=== PATIENT | female | born 1965 | race African-American/Black ===

== ENCOUNTER 2020-09-19 15:23 | Outpatient (REF) | payer MEDICAID, SELFPAY ==
--- NOTE | 2020-09-19 | MM_ITS ---
EXAMINATION: MM SCREENING DIGITAL BREAST TOMOSYNTHESIS, BILATERAL CLINICAL INFORMATION: Screening. Asymptomatic. The lifetime risk of breast cancer based on the Tyrer-Cuzick Model is 8%. COMPARISON: Mammography: 02/18/2018, 04/11/2016, 01/22/2013 TECHNIQUE: Digital breast tomosynthesis is performed in both the craniocaudal and mediolateral oblique views along with computer-aided detection (CAD). Synthesized 2D images are generated from the tomosynthesis. Additional bilateral CC views are provided. FINDINGS: There are scattered areas of fibroglandular density (ACR BI-RADS breast composition Category b). There are no significant masses, abnormal calcifications, or other abnormalities. Bilateral axillary nodes are stable. Skin contours are smooth. No significant changes. MM/MM tomosynthesis screening BI IMPRESSION: No mammographic evidence of malignancy. ASSESSMENT: BI-RADS 1: Negative RECOMMENDATION: Routine annual mammography screening. This patient's information was entered into a reminder system with a target due date for their next mammogram.
== END 2020-09-19 15:24 | disposition home or self-care (01) ==
LOC: HO.MAMMO 15:23
PROVIDERS: Visit Provider Emergency Medicine
DX: Z12.31 Encounter for screening mammogram for malignant neoplasm of breast (principal)
CPT/HCPCS: 77063; 77067

== ENCOUNTER 2020-12-01 08:18 | Day surgery (SDC) | payer MEDICAID, SELFPAY ==
[2020-11-25 14:10] VITALS: BMI 50.3
--- NOTE | 2020-11-30 08:26 | P.CONAN_ITS ---
Documented by User: Donna Garrison 11/30/20 08:26 HPI - Anesthesia Eval Consult details Narrative: 55yo F for Colonoscopy [facility] Past Medical History Medical History Diabetes mellitus Seizure Family History Family History Father No problems noted. Mother Family hx-asthma Hx of diabetes insipidus Hx of emphysema Surgical History Surgical History History of colonoscopy History of hysterectomy Hx of knee surgery Social History Social History Alcohol intake: never Smoking Status: Never smoker Advance Directives: No Advance Directives Information Provided: Yes Meds Allergies Allergy/AdvReac Type Severity Reaction Status Date / Time penicillin G [Penicillin G] Allergy Unknown RASH Verified 09/19/20 14:39 penicillin V Allergy Unknown rash Verified 09/19/20 14:39 Home Medications Medication Instructions Recorded Confirmed Type diphenhydramine HCl 25 mg capsule 25 mg PO BEDTIME 09/19/20 11/25/20 History Exam Exam Date and Time: November 30, 2020 0826 Height,Weight and Vital Signs: Height 5 ft 3 in Weight 128.82 kg Assessment and Plan Assessment Anesthesia Assessment: Chart Reviewed Documented by User: Zeina Brown 12/01/20 10:35 [facility] Past Medical History Medical History Diabetes mellitus Seizure Family History Family History Father No problems noted. Mother Family hx-asthma Hx of diabetes insipidus Hx of emphysema Surgical History Surgical History History of colonoscopy History of hysterectomy Hx of knee surgery Social History Social History Alcohol intake: never Smoking Status: Never smoker Advance Directives: No Advance Directives Information Provided: Yes Meds Allergies Allergy/AdvReac Type Severity Reaction Status Date / Time penicillin G [Penicillin G] Allergy Unknown RASH Verified 09/19/20 14:39 penicillin V Allergy Unknown rash Verified 09/19/20 14:39 Home Medications Medication Instructions Recorded Confirmed Type diphenhydramine HCl 25 mg capsule 25 mg PO BEDTIME 09/19/20 11/25/20 History Exam Height,Weight and Vital Signs: Vital Signs Temp Pulse Resp BP Pulse Ox 12/01/20 10:25 97.0 F 74 16 132/60 98 12/01/20 09:09 97.7 F 72 17 138/84 97 Airway Mallampati Class: II TM Dist: >3cm Neck ROM: Full Heart: RRR Lungs: CTAB Assessment and Plan Assessment Anesthesia Assessment: Anesthesia Plan Discussed and Chart Reviewed Final Anesthetic Review NPO: Yes ASA Class: III Final Preanesthetic Review: No Changes in Pt Med Stat, Meds/Allgs Chart Reviewed, Consent Obtained/Reviewed and Anes Risks/Benef Reviewed Patient Risk: Intermediate Procedure Risk: Low Assessment/Block/Sedation in SS: Assess/Block/Sedation-SS Anesthetic Plan Anesthetic Plan: MAC: Disposition: Standard PACU
[2020-12-01 09:09] VITALS: BP 138/84; PULSE 72; RESP 17; TEMP 36.5; O2SAT 97
[2020-12-01] MEDS: Lactated Ringers 1,000 ML 100 ML IVCONT (09:29)
--- NOTE | 2020-12-01 09:33 | P.HPSUR_ITS ---
Pre-Procedural Eval Section B Chief Complaint: screening Details of Present Illness: Colon cancer screening No clinical changes since pre procedure visit in September. Relevant Family History (Specify if Yes): No Relevant Social History: None Present Medications: see Short Stay Collaborative assessment Medical History: Significant History (Morbid obesity, diabetes-diet controlled, seizures) History of Previous Operations: Relevant previous surgery/procedure and date(s) (Hysterectomy for fibroids, colon negative done for episode rectal bleeding.) Allergies: Allergies Allergy/AdvReac Type Severity Reaction Status Date / Time penicillin G [Penicillin G] Allergy Unknown RASH Verified 09/19/20 14:39 penicillin V Allergy Unknown rash Verified 09/19/20 14:39 Review of Systems Sugical H&P ROS: Negative: Cardiovascular, Respiratory, Gastrointestinal and Mu sculoskeletal and Yes, Specify: Constitution (obesity) Exam Surgical H&P Exam: Normal: HEENT, Normal: Heart, Normal: Lungs and Normal: Extremities and Significant Findings: Abdomen (marked central obesity) Plan Diagnosis/Plan: Unchanged I have reviewed the history and physical and performed a pertinent physical examination on my patient. No changes have occurred unless specified.yes
--- NOTE | 2020-12-01 10:20 | PM.PROC ---
Brief Operative Note Date of procedure: 12/01/20 Pre-op diagnosis: Screening Post-op diagnosis: other (Low rectal polyp, 1+ Internal hemorrhoids) Procedure: Colonoscopy with cold snare polypectomy--resolution clipping x1 Anesthesia: MAC (Hilaria Morales crna) Surgeon: Sherry Arciniega Estimated blood loss (mL): 10 Pathology: other (rectal polyp) Condition: stable Disposition: PACU
[2020-12-01 10:25] VITALS: BP 132/60; PULSE 74; RESP 16; TEMP 36.1; O2SAT 98
[2020-12-01 10:40] VITALS: BP 139/86; PULSE 80; RESP 18; TEMP 36.1; O2SAT 98
--- NOTE | 2020-12-01 11:11 | HO.POSTANES ---
Post Anesthesia Evaluation Post Anesthesia Evaluation Vital Signs: Vital Signs Temp Pulse Resp BP Pulse Ox 12/01/20 10:40 97.0 F 80 18 139/86 98 12/01/20 10:25 97.0 F 74 16 132/60 98 12/01/20 09:09 97.7 F 72 17 138/84 97 Anesthesia: TIVA Mental Status: Awake Pain Control: Satisfactory Nausea/Vomiting: None Hydration: Adequate Anesthesia-Related Issues: No Anes. Related Issues
--- NOTE | 2020-12-01 11:18 | OP_ITS ---
SURGEON: Sherry Arciniega MD PREOPERATIVE DIAGNOSIS: Colon cancer screening. POSTOPERATIVE DIAGNOSIS: Rectal polyp. PROCEDURE PERFORMED: Colonoscopy with cold snare polypectomy and resolution and clipping. ESTIMATED BLOOD LOSS: Less than 10 mL. COMPLICATIONS: No complications. ANESTHESIA: Monitored. ANESTHESIOLOGIST: Ulisses Morales CRNA. ASSISTANTS: No assistant credit manager. SPECIMENS: Specimen removed; low rectal polyp, 3 cm in from anorectal verge. STATION BAGGAGE PORTER: Dr. Arciniega. CONDITION: Postprocedure, stable. IMPLANTS: Resolution clip at base of polyp (in the region where there were prominent internal hemorrhoidal vessels). FINDINGS: Digital rectal exam revealed slightly decreased sphincter tone. Video colonoscope was introduced without difficulty. It was navigated into the rectosigmoid and sigmoid. Prep was generally good throughout. Mildly redundant colon. Scope passed easily through descending, transverse, ascending colon down into the cecal cap. Appendiceal orifice was seen. Ileocecal valve was well seen. No mucosal abnormalities were appreciated. Slow withdrawal of the scope. Good rotational views (air insufflation was used). Scope continued to be withdrawn. In the rectum, there was a 3 to 4 mm sessile polyp that was removed with cold snare polypectomy technique, retrieved. Area of the base of the polyp, slight oozing, it was adjacent to prominent internal hemorrhoidal vessels in the rectal ampulla. Decision was made to deploy a resolution clip at the base. Anorectal verge was clear. There were 1+ internal hemorrhoids noted on withdrawing. CURRENT RECOMMENDATIONS: Repeat asymptomatic screening in this patient will be 5 years. Sherry Arciniega MD MEN/MODL / [id number] [facility]
== END 2020-12-01 11:18 ==
LOC: HO.SSS 08:19
PROVIDERS: Visit Provider Internal Medicine Gastroenterology
PROC: 0DJD8ZZ Inspection of Lower Intestinal Tract, Via Natural or Artificial Opening Endoscopic (ICD-10-PCS; CPT 45378; principal; 2020-12-01 09:30)
DX: Z12.11 Encounter for screening for malignant neoplasm of colon (principal); D12.8 Benign neoplasm of rectum; K64.8 Other hemorrhoids; E11.9 Type 2 diabetes mellitus without complications; R56.9 Unspecified convulsions; Z88.0 Allergy status to penicillin
CPT/HCPCS: 45385; 88305; J3010

== ENCOUNTER → 2020-12-22 13:55 | Outpatient (BNVA) | payer MEDICAID, SELFPAY | PROVIDERS: Visit Provider Nurse Practitioner Family ==

== ENCOUNTER 2021-02-16 11:30 | Outpatient (REF) | payer MEDICAID, SELFPAY ==
[2021-02-16 11:53] LABS: COVID-19 Test Negative (Negative)
== END 2021-02-16 11:31 | disposition home or self-care (01) ==
LOC: HO.LAB 11:30
PROVIDERS: Visit Provider Internal Medicine
DX: Z20.822 Contact with and (suspected) exposure to COVID-19 (principal)
CPT/HCPCS: 36415; 87635; C9803

== ENCOUNTER 2021-05-16 09:28 | Emergency (ER) | payer MEDICAID, SELFPAY ==
--- NOTE | ~2021-05-16 | XR_ITS ---
EXAMINATION: XR KNEE, RIGHT XR KNEE, LEFT CLINICAL INFORMATION: Fall, trauma, pain COMPARISON: Radiographs right knee 08/10/2015, radiographs left knee 08/08/2016. TECHNIQUE: The right knee is imaged in 4 views. The left knee is imaged in 5 views. There are a total of 9 views. FINDINGS: Right knee: There is no fracture or dislocation. There are degenerative changes, greatest medial knee joint compartment with joint narrowing and osteophytes from the medial femoral condyle and medial tibial plateau. There is no erosive change or chondrocalcinosis. Some trace thickening of the suprapatellar bursa is present without overt effusion. Hoffa's fat pad appears normal. There is spurring at the origin patellar tendon the. The deep infrapatellar recess is preserved. Left knee: There is no fracture or dislocation. Degenerative changes are present greatest medial knee joint compartment with joint narrowing and spurring from the medial femoral condyle and medial tibial plateau, slightly lesser severity than that on the right. There is no erosive change or chondrocalcinosis. No suprapatellar effusion. There is spurring at the quadriceps insertion patella and at the insertion patella tendon. The deep infrapatellar recess is preserved. XR/XR knee LT 4V IMPRESSION: 1. No fracture or dislocation. 2. Bilateral osteoarthritis, greatest medial compartment, slightly greater on right.
--- NOTE | ~2021-05-16 | XR_ITS ---
EXAMINATION: XR KNEE, RIGHT XR KNEE, LEFT CLINICAL INFORMATION: Fall, trauma, pain COMPARISON: Radiographs right knee 08/10/2015, radiographs left knee 08/08/2016. TECHNIQUE: The right knee is imaged in 4 views. The left knee is imaged in 5 views. There are a total of 9 views. FINDINGS: Right knee: There is no fracture or dislocation. There are degenerative changes, greatest medial knee joint compartment with joint narrowing and osteophytes from the medial femoral condyle and medial tibial plateau. There is no erosive change or chondrocalcinosis. Some trace thickening of the suprapatellar bursa is present without overt effusion. Hoffa's fat pad appears normal. There is spurring at the origin patellar tendon the. The deep infrapatellar recess is preserved. Left knee: There is no fracture or dislocation. Degenerative changes are present greatest medial knee joint compartment with joint narrowing and spurring from the medial femoral condyle and medial tibial plateau, slightly lesser severity than that on the right. There is no erosive change or chondrocalcinosis. No suprapatellar effusion. There is spurring at the quadriceps insertion patella and at the insertion patella tendon. The deep infrapatellar recess is preserved. XR/XR knee RT 4V IMPRESSION: 1. No fracture or dislocation. 2. Bilateral osteoarthritis, greatest medial compartment, slightly greater on right.
--- NOTE | ~2021-05-16 | XR_ITS ---
EXAMINATION: XR WRIST, LEFT CLINICAL INFORMATION: Fall, trauma, pain COMPARISON: None TECHNIQUE: The left wrist is imaged in 4 views. FINDINGS: There is no fracture, dislocation, or destructive process. The ulnar variance is neutral. There is no joint narrowing or erosive change or chondrocalcinosis. The pronator quadratus fat pad appears normal. XR/XR wrist LT min 3V IMPRESSION: Normal left wrist.
[2021-05-16 10:00] VITALS: BP 141/83; PULSE 72; RESP 16; TEMP 36.6; O2SAT 96; BMI 51.2
--- NOTE | 2021-05-16 11:02 | ED.BACK ---
HPI - Back Pain/Injury General Chief Complaint: Back Pain/Injury Stated Complaint: fall - lt side pain - multiple complaints Time Seen by Provider: 05/16/21 10:21 Source: patient Mode of arrival: ambulatory Limitations: no limitations History of Present Illness HPI Narrative: 55-year-old female with nonsignificant past medical history presents to the ED after mechanical fall with reports of bilateral knee, left wrist pain since yesterday. Patient states she was walking into [employer] when she slipped falling catching herself with her left breast and knees. Since has had pain. Denies head injury or trauma. States she feels sore in other areas of the body but nothing compared to these areas of discomfort. Denies chest pain or shortness of breath denies abdominal pain nausea or vomiting. States she has been able ambulate with difficulty has been using Tylenol at home for pain control. Related Data Home Medications Medication Instructions Recorded Confirmed diphenhydramine HCl 25 mg capsule 25 mg PO BEDTIME 09/19/20 11/25/20 Allergies Allergy/AdvReac Type Severity Reaction Status Date / Time penicillin G [Penicillin G] Allergy Unknown RASH Verified 09/19/20 14:39 penicillin V Allergy Unknown rash Verified 09/19/20 14:39 Review of Systems Review of Systems: Constitutional : No Weight loss, No Fever, No Chills, No Night Sweats, No Fatigue, No Malaise ENT/Mouth : No Hearing loss, No Ear Pain, No Nasal Congestion, No Sinus Pain, No Hoarseness, No sore throat, No Rhinorrhea, No Swallowing Difficulty Eyes: No Eye Pain, No Swelling, No Redness, No Foreign Body, No Discharge, No Vision Changes Cardiovascular : No Chest Pain, No SOB, No Dyspnea on Exertion, No Orthopnea, No Edema, No Palpitations Respiratory : No Cough, No Sputum, No Wheezing, No Smoke Exposure, No Dyspnea Gastrointestinal : No Nausea, No Vomiting, No Diarrhea, No Constipation, No abdominal Pain, No Hematochezia, No Melena Genitourinary : no irregular bleeding, No Dysuria, No Urinary Frequency, No Hematuria, No Urinary Incontinence, No Urgency, No Flank Pain, No Urinary Flow Changes, No Hesitancy Musculoskeletal : + joint pain, + Myalgias, No Joint Swelling Skin : No Skin Lesions, No rash Neuro : No Weakness, No Numbness, No Paresthesias, No Loss of Consciousness, No Dizziness, No Headache Psych : No Anxiety/Panic, No Depression, No SI/HI/AH/VH, No Social Issues, Heme/Lymph: No Bruising, No Bleeding,No Lymphadenopathy Endocrine : No Polyuria, No Polydipsia, No Temperature Intolerance [facility] Past Medical History Attestation statement: The following information was validated with the patient. Source: old records reviewed and obtained from family Medical History (Updated 05/16/21 @ 11:26 by TOBI Brown) Diabetes mellitus Seizure Tubular adenoma Surgical History (Updated 12/22/20 @ 13:57 by FLORESITA Orlando) History of colonoscopy History of hysterectomy Hx of knee surgery Family History Family History Father No problems noted. 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 Blood pressure normal. Heart rate normal. Respiration rate normal. Temperature normal. Oxygen saturation normal. Appearance: Alert. Oriented X3. No acute distress. Head: Normal external exam. Normocephalic. Atraumatic. No Fritz signs noted. No raccoon eyes noted Eyes: Conjunctiva and sclera normal. ENT: EAC normal. Moist mucous membranes. No drooling noted. No muffled voice noted. Neck: Normal inspection. Neck supple. FROM. No meningeal signs. CVS: Pulses normal throughout. Respiratory: No respiratory distress. Painless inspiration. No accessory muscle usage noted Abdomen: No visible injury noted. Abdomen soft, nd/nt Back: Full range of motion noted. No midline tenderness or acute step-offs Skin: Skin warm and dry. Normal skin color. Normal skin turgor. Extremities: No lower extremity edema. Extremities exhibit normal range of motion. Pain to palpation of bilateral anterior knees with mild ecchymosis, no crepitius or acute deformities. Full ROM noted. Mild pain to palpation of left wrist, no overlying, erythema, edema or ecchymosis. Neuro: Oriented X 3. No motor deficit. No sensory deficit. Course Reevaluation(s) Reevaluation #1: Patient's x-rays without evidence of acute fracture dislocation feel that discharge is safe will recommend continued ibuprofen and Tylenol home patient comfortable with this plan will discharge home this time. Discharge Plan Discharge Clinical Impression: Injury of wrist, left Qualifiers: Encounter type: initial encounter Qualified Code(s): S69.92XA - Unspecified injury of left wrist, hand and finger(s), initial encounter Bilateral knee pain Qualifiers: Chronicity: acute Qualified Code(s): M25.561 - Pain in right knee Patient Disposition: Home, Self-Care Instructions: Knee Sprain (ED), Wrist Sprain (ED) Additional Instructions: Your seen the emergency department today after a fall with left wrist and bilateral knee pain. X-rays were taken without evidence of fracture. Follow-up with your doctor if pain persists use Motrin and Tylenol home for pain control. Return to the emergency department his symptoms significantly worsen. Prescriptions: No Action diphenhydramine HCl [Benadryl] 25 mg capsule 25 mg PO BEDTIME RF: 0 Interventions: ED Discharge Assessment Last Done: 05/16/21 11:39 Discharge Date/Time: 05/16/21 11:40 Print Language: Yoruba
== END 2021-05-16 11:40 | disposition home or self-care (01) ==
PROVIDERS: Emergency Provider Student in an Organized Health Care Education/Training Program
DX: M25.562 Pain in left knee (principal); M25.561 Pain in right knee; S69.92XA Unspecified injury of left wrist, hand and finger(s), initial encounter; W01.0XXA Fall on same level from slipping, tripping and stumbling without subsequent striking against object, initial encounter; Y93.89 Activity, other specified; Y92.511 Restaurant or cafe as the place of occurrence of the external cause; Y99.8 Other external cause status
CPT/HCPCS: 73110; 73564; 99283

== ENCOUNTER 2021-05-26 22:32 | Emergency (ER) | payer MEDICAID, SELFPAY ==
--- NOTE | ~2021-05-26 | XR_ITS ---
EXAMINATION: XR CHEST CLINICAL INFORMATION: Cough COMPARISON: 04/17/2014 TECHNIQUE: 2 views of the chest were obtained. FINDINGS: No significant abnormality is noted involving the heart, lungs, mediastinum, bony thorax or soft tissues. XR/XR chest 2V IMPRESSION: Unremarkable examination.
[2021-05-26 23:16] VITALS: BP 147/89; PULSE 84; RESP 20; TEMP 36.6; O2SAT 98; BMI 51.2
[2021-05-27] VITALS: BP 142/76; PULSE 68; RESP 20; TEMP 36.7; O2SAT 97
--- NOTE | 2021-05-27 00:25 | ED_ITS ---
HPI - URI/Sore Throat General Chief Complaint: Upper Respiratory Symptoms Stated Complaint: Cough/Headache Time Seen by Provider: 05/26/21 23:51 Source: patient Mode of arrival: ambulatory Limitations: no limitations History of Present Illness HPI Narrative: Patient comes emergency room complaining of cough and nasal congestion for 4 days, denies shortness of breath, no chills, complaining of generalized body aches. Related Data Home Medications Medication Instructions Recorded Confirmed diphenhydramine HCl 25 mg capsule 25 mg PO BEDTIME 09/19/20 11/25/20 Previous Rx's Medication Instructions Recorded albuterol sulfate 2 puff INHALATION Q6H PRN #6.7 g 05/27/21 benzonatate [Tessalon Perles] 100 mg PO TID PRN #10 cap 05/27/21 Allergies Allergy/AdvReac Type Severity Reaction Status Date / Time penicillin G [Penicillin G] Allergy Unknown RASH Verified 09/19/20 14:39 penicillin V Allergy Unknown rash Verified 09/19/20 14:39 Review of Systems Review of Systems: Constitutional : No Weight loss, No Fever, No Chills, No Night Sweats, No Fatigue, No Malaise ENT/Mouth : No Hearing loss, No Ear Pain, No Nasal Congestion, No Sinus Pain, No Hoarseness, No sore throat, No Rhinorrhea, No Swallowing Difficulty Eyes: No Eye Pain, No Swelling, No Redness, No Foreign Body, No Discharge, No Vision Changes Cardiovascular : No Chest Pain, No SOB, No Dyspnea on Exertion, No Orthopnea, No Edema, No Palpitations Respiratory : Complaining of cough and nasal congestion, No Sputum, No Wheezing, No Smoke Exposure, No Dyspnea Gastrointestinal : No Nausea, No Vomiting, No Diarrhea, No Constipation, No abdominal Pain, No Hematochezia, No Melena Genitourinary : no irregular bleeding, No Dysuria, No Urinary Frequency, No Hematuria, No Urinary Incontinence, No Urgency, No Flank Pain, No Urinary Flow Changes, No Hesitancy Musculoskeletal : No joint pain, No Myalgias, No Joint Swelling Skin : No Skin Lesions, No rash Neuro : No Weakness, No Numbness, No Paresthesias, No Loss of Consciousness, No Dizziness, No Headache Psych : No Anxiety/Panic, No Depression, No SI/HI/AH/VH, No Social Issues, Heme/Lymph: No Bruising, No Bleeding,No Lymphadenopathy Endocrine : No Polyuria, No Polydipsia, No Temperature Intolerance [facility] Past Medical History Medical History Diabetes mellitus Seizure Tubular adenoma Surgical History History of colonoscopy History of hysterectomy Hx of knee surgery Family History Family History Father No problems noted. 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 Oriented X3. No acute distress. Eyes: Pupils equal, round and reactive to light. ENT: Pharynx normal. Nasal congestion, no rhinorrhea Neck: Normal inspection. Neck supple. No lymph nodes noted. No crepitus CVS: Normal heart rate and rhythm. Pulses normal. Normal S1 and S2 Respiratory: No respiratory distress. Breath sounds normal. No Wheezing. No rales Abdomen: Soft and nontender. No rigidity. No distention. good BS x4 Skin: Skin warm and dry. Normal skin color. Normal skin turgor. Extremities: No lower extremity edema. No lower extremity edema. No La cerations. No Rash Neuro: Oriented X 3. No motor deficit. No sensory deficit. Moving all extermities. No slurred speech. Course Course Course Narrative: I discussed the x-ray with the patient's, no acute findings. Patient's COVID test was negative. Patient likely having viral bronchitis. Patient requesting an inhaler to be sent to her pharmacy, states that it usually helps her with the coughing. On respiratory exam, patient's oxygen saturation remains at 98%, no wheezing MDM - URI/Sore Throat Lab Data Labs: Lab Results 05/27/21 Range/Units 00:16 COVID-19 ([facility]) Negative (Negative) COVID-19 Clin Com See Note Imaging Data Chest x-ray: Radiologist's impression: FINDINGS: No significant abnormality is noted involving the heart, lungs, mediastinum, bony thorax or soft tissues. XR/XR chest 2V IMPRESSION: Unremarkable examination. Discharge Plan Discharge Clinical Impression: Acute bronchitis, viral Patient Disposition: Home, Self-Care Instructions: Acute Bronchitis (ED) Additional Instructions: Please follow-up with your primary care physician tomorrow. If you have any worsening or new symptoms, please return to the emergency room or call 911 Prescriptions: New albuterol sulfate 90 mcg/actuation HFA aerosol inhaler 2 puff inhalation Q6H PRN (Reason: shortness of breath or wheezing) Qty: 6.7 RF: 0 benzonatate [Tessalon Perles] 100 mg capsule 100 mg PO TID PRN (Reason: cough) Qty: 10 RF: 0 No Action diphenhydramine HCl [Benadryl] 25 mg capsule 25 mg PO BEDTIME RF: 0
[2021-05-27 00:37] LABS: COVID-19 Test Negative (Negative); IDNOW Serial# 9DD0AD1C
[2021-05-27] MEDS: Acetaminophen 325 MG TABLET 650 MG PO (01:08)
== END 2021-05-27 01:00 | disposition home or self-care (01) ==
PROVIDERS: Emergency Medicine; Emergency Provider Emergency Medicine
DX: J20.8 Acute bronchitis due to other specified organisms (principal); Z20.822 Contact with and (suspected) exposure to COVID-19; E11.9 Type 2 diabetes mellitus without complications
CPT/HCPCS: 36415; 71046; 87635; 99283; 99284

== ENCOUNTER 2022-09-11 19:14 | Emergency (ER) | payer MEDICAID, SELFPAY ==
--- NOTE | ~2022-09-11 | XR_ITS ---
EXAMINATION: XR CHEST CLINICAL INFORMATION: Shortness of breath. Covid positive. COMPARISON: Chest radiograph 05/27/2021. TECHNIQUE: Frontal view of the chest was obtained. FINDINGS: Normal appearance of the cardiomediastinal silhouette. Symmetric lung expansion without focal airspace opacities, pleural effusions or pneumothorax. No acute osseous abnormalities. XR/XR chest 1V IMPRESSION: No acute cardiopulmonary findings. However, it is important to note that radiographic examinations have decreased sensitivity for the detection of groundglass airspace opacities which could be seen with atypical/viral infections.
[2022-09-11 19:15] VITALS: BP 152/105; PULSE 100; RESP 22; TEMP 37.3; O2SAT 98; BMI 51.2
[2022-09-11 21:21] LABS: Influenza A PCR NEGATIVE (Negative); Influenza B PCR NEGATIVE (Negative); Resp Syncy Virus RNA Qual PCR NEGATIVE (Negative); SARS COV2 PCR INHOUSE POSITIVE (Negative)
[2022-09-12 00:18] VITALS: BP 156/76; PULSE 91; RESP 20; TEMP 36.9; O2SAT 97
--- NOTE | 2022-09-12 01:52 | ED_ITS ---
HPI - SOB/Dyspnea General Chief Complaint: Dyspnea Stated Complaint: Difficulty breathing Time Seen by Provider: 09/12/22 01:17 Source: patient Mode of arrival: ambulatory Limitations: no limitations History of Present Illness HPI Narrative: 57-year-old female came in for evaluation of generalized body ache, headache, chills, SOB, and coughing. Patient had positive COVID testing in the emergency department. Symptoms started 3 days ago. No CP , no fever, no chills. Related Data Home Medications Medication Instructions Recorded Confirmed diphenhydramine HCl 25 mg capsule 25 mg PO BEDTIME 09/19/20 11/25/20 (Benadryl) Previous Rx's Medication Instructions Recorded albuterol sulfate 90 mcg/actuation 2 puff inhalation Q6H PRN 05/27/21 aerosol inhaler shortness of breath or wheezing #6.7 grams benzonatate 100 mg capsule 100 mg PO TID PRN cough #10 caps 05/27/21 (Tessalon Perles) Allergies Allergy/AdvReac Type Severity Reaction Status Date / Time penicillin G [Penicillin G] Allergy Unknown RASH Verified 09/19/20 14:39 penicillin V Allergy Unknown rash Verified 09/19/20 14:39 Review of Systems Review of Systems: All other systems are reviewed and are negative Constitutional: Reports as per HPI and Reports no additional constitutional complaints Eyes: Reports as per HPI and Reports no additional eye complaints Reports system reviewed and no additional complaints, except as documented Cardiovascular: Reports as per HPI and Reports no additional cardiovascular complaints Respiratory: Reports as per HPI and Reports no additional respiratory complaints Gastrointestinal: Reports as per HPI and Reports no additional gastrointestinal complaints Genitourinary: Reports no additional female genitourinary complaints Musculoskeletal: Reports no additional musculoskeletal complaints Skin/Breast: Reports system reviewed and no additional complaints, except as docu Psychiatric: Reports no additional psychiatric complaints Endocrine: Reports no additional endocrine complaints Hematologic/Lymphatic: Reports no additional hematologic/lymphatic complaints Allergic/Immunologic: Reports no additional allergic/immunologic complaints Reports system reviewed and no additional complaints, except as documented and Reports Abnormal speech present [facility] Past Medical History Medical History Diabetes mellitus Seizure Tubular adenoma Surgical History History of colonoscopy History of hysterectomy Hx of knee surgery Family History Family History Father No problems noted. Mother Family hx-asthma Hx of diabetes insipidus Hx of emphysema Social History Social History Household Members: None Alcohol intake: never Advance Directives: No Advance Directives Information Provided: No Current occupational status: employed Current occupation: [employer] Physical Exam Vital Signs: Vital Signs: Last Vital Signs Temp 98.5 F 09/12/22 00:18 Pulse 91 09/12/22 00:18 Resp 20 09/12/22 00:18 BP 156/76 H 09/12/22 00:18 Pulse Ox 97 09/12/22 00:18 O2 Del Method 09/12/22 00:18 BMI result Body Mass Index 51.2 vital signs have been reviewed as appeared to be correct. Blood pressure normal. Heart rate normal. Respiration rate normal. Temperature normal. Oxygen saturation normal. Appearance: Alert. Oriented X3. No acute distress. Head: Normal external exam. Normocephalic. Atraumatic. No Fritz signs noted. No raccoon eyes noted Eyes: PERRLA. EOMI. Conjunctiva and sclera normal. Eyelids normal. ENT: TM's Normal. Pharynx normal. Uvula midline. Moist mucous membranes. No trismus noted. No drooling noted. No muffled voice noted. Neck: Normal inspection. Neck supple. FROM. No adenopathy. Thyroid Normal. No meningeal signs. No neck mass noted. CVS: Normal heart rate and rhythm. Heart sound normal. No murmurs noted. Pulses normal throughout. Respiratory: No respiratory distress. Painless inspiration. Breath sounds normal. No wheezes/rales/rhonchi noted. Chest nontender. No accessory muscle usage noted or decreased air movement noted. Abdomen: Soft and nontender. Bowel sounds normal in all 4 quadrants. No distention noted. No organomegaly noted. No visible injury noted. Back: No CVA tenderness. Full range of motion noted. Skin: Skin warm and dry. Normal skin color. Normal skin turgor. No rashes/lesions/lacerations noted. Extremities: No lower extremity edema. Extremities exhibit normal range of motion. Extremities nontender. Neuro: Oriented X 3. Cranial nerve exam: II-XII are grossly intact No motor deficit. No sensory deficit. Reflexes normal. Course Course Course Narrative: 57-year-old female positive for COVID infection, with flu-like symptoms for the past 3 days, patient was instructed to stay home with quarantine for the next 5 days, return to the hospital if worsening of the symptoms or difficulty breathing. At this point patient has a negative chest x-ray and stable vital signs with stable Normal O2 saturation. MDM - SOB/Dyspnea Lab Data Attestation: I reviewed the patient's lab results. Labs: Lab Results 09/11/22 Range/Units 20:20 Influenza Type A (PCR) NEGATIVE (Negative) Influenza Type B (PCR) NEGATIVE (Negative) RSV RNA Qual (PCR) NEGATIVE (Negative) SARS-CoV-2 RNA (RT-PCR) POSITIVE A (Negative) Imaging Data Chest x-ray: Attestation: I personally reviewed and interpreted this imaging study as follows: Radiologist's impression: No acute cardiopulmonary findings. However, it is important to note that radiographic examinations have decreased sensitivity for the detection of groundglass airspace opacities which could be seen with atypical/viral infections. Discharge Plan Discharge Clinical Impression: COVID-19 virus infection Patient Disposition: Home, Self-Care Instructions: COVID-19 (Coronavirus Disease 2019) (ED) Prescriptions: No Action albuterol sulfate 90 mcg/actuation HFA aerosol inhaler 2 puff inhalation Q6H PRN (Reason: shortness of breath or wheezing) Qty: 6.7 0RF benzonatate [Tessalon Perles] 100 mg capsule 100 mg PO TID PRN (Reason: cough) Qty: 10 0RF diphenhydramine HCl [Benadryl] 25 mg capsule 25 mg PO BEDTIME Referrals: [facility] [Primary Care Provider] - Stand Alone Forms: Work/School Release
== END 2022-09-12 02:24 | disposition home or self-care (01) ==
PROVIDERS: Emergency Provider Emergency Medicine
DX: U07.1 COVID-19 (principal); R06.02 Shortness of breath; M79.10 Myalgia, unspecified site; Z79.899 Other long term (current) drug therapy
CPT/HCPCS: 0241U; 71045; 99283

== ENCOUNTER 2022-10-31 09:06 | Outpatient (REF) | payer MEDICAID, SELFPAY ==
--- NOTE | ~2022-10-31 | CT_ITS ---
EXAMINATION: CT head/brain wo IV con CLINICAL INFORMATION: Reason for Exam HEADACHES,NEW OR WORSENING COMPARISON: CT head without contrast 11/11/2017 TECHNIQUE: Contiguous axial imaging was performed from the skull base to vertex without intravenous contrast. Sagittal and coronal reformatted images were obtained. This CT examination was performed using dose optimization techniques as appropriate, variously including the following: * Automated exposure control * Adjustment of mA and/or kV according to patient size (this includes techniques or standardized protocols for targeted exams where dose is matched to indication/reason for exam; i.e. extremities or head) Use of iterative reconstruction technique DLP: 852 mGy-cm FINDINGS: No acute osseous or soft tissue abnormality. The mastoid air cells and visualized portions of the paranasal sinuses are well aerated. There is no evidence of acute intracranial hemorrhage or territorial infarction. No abnormal mass effect or midline shift is seen. [place] to white matter differentiation is well preserved. No extra-axial fluid collections are identified. No hydrocephalus. No significant volume loss. There is no abnormal attenuation within the brain parenchyma. Stable partially empty sella. CT/CT head/brain wo IV con IMPRESSION: No acute intracranial abnormality including hemorrhage, mass effect, hydrocephalus, or acute territorial edematous infarction.
== END 2022-10-31 09:07 | disposition home or self-care (01) ==
LOC: HO.CT 09:06
PROVIDERS: Visit Provider Emergency Medicine
DX: R51.9 Headache, unspecified (principal)
CPT/HCPCS: 70450

== ENCOUNTER 2023-01-02 16:20 | Emergency (ER) | payer MEDICAID, SELFPAY ==
--- NOTE | ~2023-01-02 | CT_ITS ---
EXAMINATION: CT ABDOMEN AND PELVIS WITH CONTRAST CLINICAL INFORMATION: Epigastric pain, nausea and vomiting. COMPARISON: 12/30/2014 TECHNIQUE: Multidetector volumetric images were obtained from the superior aspect of the liver through the pubic symphysis following administration 85 mL of Omnipaque 350 intravenous contrast. Sagittal and coronal reformatted images were obtained on the technologist's workstation. Oral contrast: No This CT examination was performed using dose optimization techniques as appropriate, variously including the following: *Automated exposure control *Adjustment of mA and/or kV according to patient size (this includes techniques or standardized protocols for targeted exams where dose is matched to indication/reason for exam; i.e. extremities or head) *Use of iterative reconstruction technique DLP: 1140 mGy-cm FINDINGS: LUNG BASES: No acute findings in the visualized lung bases. An old stable 0.3 cm subpleural nodule is present in the lateral left lower lobe, unchanged compared to 12/30/2014; no imaging follow-up recommended. Mitral valve annulus is calcified. No pericardial or pleural effusion. LIVER: Obese body habitus with hepatomegaly and diffuse hepatic steatosis. 1 cm cyst of water density is present within hepatic segment 6. No suspicious liver lesion. GALLBLADDER AND BILIARY TREE: Gallbladder is without radiopaque stones, wall thickening or pericholecystic fluid. No dilated bile ducts. PANCREAS: Normal. No edema, pancreatic ductal dilatation or mass. SPLEEN: Normal. ADRENAL GLANDS: Normal. KIDNEYS AND URETERS: The kidneys have normal size and cortical thickness. No perinephric edema or fluid collection. No urolithiasis or hydroureteronephrosis. BLADDER: Normal. No calculi or wall thickening. BOWEL AND PERITONEUM: A very small sliding-type hiatal hernia is noted. Stomach and bowel are underdistended. No dilated bowel loops. No focal bowel wall thickening, mesenteric fat stranding or free fluid. The appendix is normal. No pneumoperitoneum. ABDOMINAL WALL: Unremarkable. VASCULATURE: Normal. LYMPH NODES: No pathologic sized lymph nodes in the abdomen or pelvis. No inguinal lymphadenopathy. PELVIC VISCERA: There appears to have been partial hysterectomy with residual cervix in place. No adnexal mass. No pelvic free fluid. MUSCULOSKELETAL: Hemangiomas of the L1 and L5 vertebral bodies. No suspicious osseous lesions. Facet osteoarthritis of L4-5 and L5-S1. CT/CT abdomen pelvis w IV con IMPRESSION: * Obesity, hepatomegaly and diffuse hepatic steatosis. * No acute imaging abnormalities compared to 12/30/2014. No evidence of inflammatory change or obstruction along the gastrointestinal tract. * No nephrolithiasis or hydronephrosis.
[2023-01-02 16:41] VITALS: BP 149/86; PULSE 80; RESP 18; TEMP 36.7; O2SAT 96; BMI 51.2
--- NOTE | 2023-01-02 16:44 | ED.GENADULT ---
HPI - General Adult General Chief complaint: General Medical <Kyler Limon - Last Filed: 01/02/23 16:45> Stated complaint: Needs IV, [facility] called <Kyler Limon - Last Filed: 01/02/23 16:45> Time Seen by Provider: 01/03/23 06:32 <Kyler Limon - Last Filed: 01/02/23 16:45> Source: patient and old records reviewed <Hilary Ramirez DO - Last Filed: 01/03/23 08:17> Mode of arrival: ambulatory <Hilary Ramirez DO - Last Filed: 01/03/23 08:17> Limitations: no limitations <Hilary Ramirez DO - Last Filed: 01/03/23 08:17> History of Present Illness HPI narrative: 57 yo female with PMH of asthma, diabetes, prior seizures but not on medications she has had hysterectomy and tubal ligation notes 3 days of epigastric pain and nausea with intermittent bouts of stabbing epigastric pain with associated nonbloody diarrhea. No travel, antibiotics, food exposures. This has never happened before. She feels weak and dehydrated. She saw her PCP yesterday and was sent to the ED for IVF. She denies ETOH use. Pain is severe to moderate when it happens. <Hilary Ramirez DO - Last Filed: 01/03/23 08:17> MD complaint: abdominal pain <Hilary Ramirez DO - Last Filed: 01/03/23 08:17> Onset (ago): day(s) (3) <Hilary Ramirez DO - Last Filed: 01/03/23 08:17> Location: abdomen <Hilary Ramirez DO - Last Filed: 01/03/23 08:17> Radiation: non-radiation <Hilary Ramirez DO - Last Filed: 01/03/23 08:17> Severity: moderate <Hilary Ramirez DO - Last Filed: 01/03/23 08:17> Quality: stabbing <Hilary Ramirez DO - Last Filed: 01/03/23 08:17> Pain Consistency: intermittent <Hilary Ramirez DO - Last Filed: 01/03/23 08:17> Relieving factors: none <Hilary Ramirez DO - Last Filed: 01/03/23 08:17> Exacerbating factors: none <Hilary Ramirez DO - Last Filed: 01/03/23 08:17> Associated symptoms: headaches, loss of appetite, malaise, nausea/vomiting and other (diarrhea) <Hilary Ramirez DO - Last Filed: 01/03/23 08:17> Treatments prior to arrival: none <Hilary Ramirez DO - Last Filed: 01/03/23 08:17> Related Data Home medications: Home Medications Medication Instructions Recorded Confirmed diphenhydramine HCl 25 mg capsule 25 mg PO BEDTIME 09/19/20 11/25/20 (Benadryl) Previous Rx's Medication Instructions Recorded albuterol sulfate 90 mcg/actuation 2 puff inhalation Q6H PRN 05/27/21 aerosol inhaler shortness of breath or wheezing #6.7 grams benzonatate 100 mg capsule 100 mg PO TID PRN cough #10 caps 05/27/21 (Tessalon Perles) ondansetron 4 mg disintegrating 4 mg PO Q8H PRN nausea and 01/03/23 tablet vomiting #20 tabs <Kyler Limon - Last Filed: 01/02/23 16:45> Allergies/adverse reactions: Allergies Allergy/AdvReac Type Severity Reaction Status Date / Time penicillin G [Penicillin G] Allergy Unknown RASH Verified 01/02/23 16:41 penicillin V Allergy Unknown rash Verified 01/02/23 16:41 <Kyler Limon - Last Filed: 01/02/23 16:45> Review of Systems Review of Systems: Constitutional : No Weight loss, No Fever, No Chills ENT/Mouth : No sore throat, No Rhinorrhea Eyes: No Swelling, No Redness Cardiovascular : No Chest Pain, No SOB, No edema Respiratory : No Cough, No Sputum, No Wheezing Gastrointestinal : Positive Nausea, no Vomiting, positive Diarrhea, positive abdominal Pain, No Hematochezia, No Melena Genitourinary : No Dysuria, No Urinary Frequency, No Hematuria, No Urgency Musculoskeletal : No joint pain, No Myalgias, No Joint Swelling Skin : No Skin Lesions, No rash Neuro : No Weakness, No Numbness, No Dizziness, No Headache Psych : No Anxiety/Panic, No Depression Heme/Lymph: No Bruising, No Lymphadenopathy Endocrine : No Polyuria, No Polydipsia All other systems reviewed and are negative. <Hilary Ramirez DO - Last Filed: 01/03/23 08:17> [facility] Past Medical History Attestation statement: The following information was validated with the patient. <Hilary Ramirez DO - Last Filed: 01/03/23 08:17> Medical History: Medical History Diabetes mellitus Seizure Tubular adenoma <Kyler Limon - Last Filed: 01/02/23 16:45> Surgical History: Surgical History History of colonoscopy History of hysterectomy Hx of knee surgery <Kyler Limon - Last Filed: 01/02/23 16:45> Family History Family History: Family History Father No problems noted. 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 <Kyler Limon - Last Filed: 01/02/23 16:45> Physical Exam ED Vital Signs: Vital Signs - 24 hr 01/02/23 16:41 01/03/23 02:15 01/03/23 04:59 Temperature 98.0 F 97.2 F 97.6 F Pulse Rate 80 80 79 Respiratory Rate 18 16 16 Blood Pressure 149/86 H 164/80 H 127/63 Pulse Oximetry 96 96 97 Oxygen Delivery Method Room Air Room Air Room Air 01/03/23 07:31 Temperature 97.9 F Pulse Rate 70 Respiratory Rate 13 Blood Pressure 136/75 Pulse Oximetry 98 Oxygen Delivery Method Room Air BMI result Body Mass Index 51.2 <Kyler Limon - Last Filed: 01/02/23 16:45> Vital Signs - 24 hr 01/02/23 16:41 01/03/23 02:15 01/03/23 04:59 Temperature 98.0 F 97.2 F 97.6 F Pulse Rate 80 80 79 Respiratory Rate 18 16 16 Blood Pressure 149/86 H 164/80 H 127/63 Pulse Oximetry 96 96 97 Oxygen Delivery Method Room Air Room Air Room Air 01/03/23 07:31 Temperature 97.9 F Pulse Rate 70 Respiratory Rate 13 Blood Pressure 136/75 Pulse Oximetry 98 Oxygen Delivery Method Room Air BMI result Body Mass Index 51.2 <Hilary Ramirez DO - Last Filed: 01/03/23 08:17> Appearance: Alert. Oriented X3. No acute distress. Eyes: Pupils equal, round and reactive to light. ENT: Pharynx normal. Neck: Normal inspection. Neck supple. CVS: Normal heart rate and rhythm. Pulses normal. Respiratory: No respiratory distress. Breath sounds normal. Abdomen: Soft and moderate ttp in epigastric area, no hall's sign Skin: Skin warm and dry. Normal skin color. Normal skin turgor. Extremities: No lower extremity edema. No calf ttp Neuro: Oriented X 3. No motor deficit. No sensory deficit. <Hilary Ramirez DO - Last Filed: 01/03/23 08:17> Course Course Course Narrative: RME- 57-year-old female presents for evaluation of weakness, nausea and diarrhea. Patient reports that she has been having persistent diarrhea for 3 days. Denies any risk factors for C diff. She went to a walk-in clinic and was referred to the ER for further evaluation. Vital signs are stable on arrival Plan for labs and further treatment as indicated <Kyler Limon - Last Filed: 01/02/23 16:45> Reevaluation(s) Reevaluation #1: other than elevated lipase - LFTs normal CT scan no acute findings fatty liver likely body habitus feels better tolerating PO stable for DC will put on zofran and DC home patient agrees and feels safe for discharge <Hilary Ramirez DO - Last Filed: 01/03/23 08:17> Medications Administered Discontinued Medications Generic Name Dose Route Start Last Admin Trade Name Freq PRN Reason Stop Dose Admin Acetaminophen 650 mg 01/03/23 06:38 01/03/23 07:43 Acetaminophen 325 Mg Tablet PO 01/03/23 06:39 650 mg ONCE ONE Administration Lactated Ringer's 1,000 mls @ 999 mls/hr 01/03/23 06:45 01/03/23 07:49 Lr IV 01/03/23 07:45 999 mls/hr .Q1H1M THUAN Administration Iohexol 100 ml 01/03/23 07:10 01/03/23 07:11 Iohexol 350 Mg/Ml 100 Ml Infus..Btl IV 01/03/23 07:11 85 ml ONCE ONE Administration Ondansetron HCl 4 mg 01/03/23 06:38 01/03/23 07:43 Ondansetron Hcl 4 Mg/2 Ml Vial IVPUSH 01/03/23 06:39 4 mg ONCE ONE Administration <Kyler Limon - Last Filed: 01/02/23 16:45> Medications Administered Discontinued Medications Generic Name Dose Route Start Last Admin Trade Name Ludin PRN Reason Stop Dose Admin Acetaminophen 650 mg 01/03/23 06:38 01/03/23 07:43 Acetaminophen 325 Mg Tablet PO 01/03/23 06:39 650 mg ONCE ONE Administration Lactated Ringer's 1,000 mls @ 999 mls/hr 01/03/23 06:45 01/03/23 07:49 Lr IV 01/03/23 07:45 999 mls/hr .Q1H1M THUAN Administration Iohexol 100 ml 01/03/23 07:10 01/03/23 07:11 Iohexol 350 Mg/Ml 100 Ml Infus..Btl IV 01/03/23 07:11 85 ml ONCE ONE Administration Ondansetron HCl 4 mg 01/03/23 06:38 01/03/23 07:43 Ondansetron Hcl 4 Mg/2 Ml Vial IVPUSH 01/03/23 06:39 4 mg ONCE ONE Administration <Hilary Ramirez DO - Last Filed: 01/03/23 08:17> Medical Decision Making Medical Decision Making MDM Narrative: 57 yo female with PMH of asthma, diabetes, prior seizures here with c/o epigastric pain and nausea/diarrhea - no risk factors for c diff and her pain is mostly epigastric she also is not have numerous bouts of diarrhea. Her pain with elevated lipase is somewhat concerning for pancreatitis. She has no risk factors for pancreatitis that she has reported. At this time will need CT scan for evaluation for pancreas, IVF and reassessments. ACS seems unlikely. No peritoneal signs on exam. <Hilary Ramirez DO - Last Filed: 01/03/23 08:17> Differential Diagnosis Differential Diagnoses: The differential diagnosis associated with the presentation includes <Hilary Ramirez DO - Last Filed: 01/03/23 08:17> pancreatitis, gastroenteritis, colitis, food toxicity, gastritis, cholelithiasis <Hilary Ramirez DO - Last Filed: 01/03/23 08:17> Lab Data MDM Lab Attestation statement: I reviewed the patient's lab results. <Hilary Ramirez - Last Filed: 01/03/23 08:17> Result Diagrams: 01/02/23 17:31 01/02/23 17:31 <Kyler Limon - Last Filed: 01/02/23 16:45> Labs: Lab Results 01/02/23 01/02/23 01/03/23 Range/Units 17:31 17:31 05:48 WBC 9.5 (4.8-10.8) X10*3/uL RBC 5.11 (4.20-5.50) X10*6/uL Hgb 13.7 (12.0-16.0) g/dl Hct 43.6 (37.0-47.0) % MCV 85.3 (80.0-98.0) fL MCH 26.8 L (27.0-33.0) pg MCHC 31.4 (31.0-35.0) g/dl RDW 13.6 (11.0-16.0) % Plt Count 373 (160-400) X10*3/uL MPV 8.9 L (9.4-12.3) fL Immature Gran % (Auto) 0.4 (0.0-0.4) % Neut % (Auto) 76.9 H (45-73) % Lymph % (Auto) 16.1 L (20-40) % [place] % (Auto) 6.1 (2-11) % Eos % (Auto) 0.3 (0-4) % Baso % (Auto) 0.2 (0-2) % Lymph # (Auto) 1.5 (1.2-4.9) X10*3/uL [place] # (Auto) 0.6 (0.1-1.2) X10*3/uL Eos # (Auto) 0.0 (0.0-0.4) X10*3/uL Baso # (Auto) 0.0 (0.0-0.2) X10*3/uL Abs Immat Gran (auto) 0.04 H (0.00-0.03) X10*3/uL Absolute Neuts (auto) 7.3 (2.0-8.3) x10*3/uL Absolute Nucleated RBC 0.000 (0.0-0.012) X10*3/uL Nucleated RBC % (auto) 0.0 (0.0-0.2) /100WBC Sodium 142 (135-145) mmol/L Potassium 4.5 (3.3-5.1) mmol/L Chloride 103 (96-108) mmol/L Carbon Dioxide 29 (22-29) mmol/L Anion Gap 15 (12-20) BUN 14 (9-16) mg/dL Creatinine 0.70 (0.5-1.4) mg/dL Estim Creat Clear Calc 115.9 Estimated GFR > 60 POC Glucose 121 H (60-115) mg/dL Random Glucose 132 H (60-115) mg/dL Calcium 9.6 (8.4-10.2) mg/dL Total Bilirubin 0.4 (0.0-1.0) mg/dL AST 15 (5-31) U/L ALT 20 (0-31) U/L Alkaline Phosphatase 100 (39-117) U/L Troponin I High Sens (<3.5-17.0) ng/L Total Protein 7.2 (6.5-8.0) g/dL Albumin 4.2 (3.5-5.0) g/dL Lipase 166 H (8-78) U/L 01/03/23 Range/Units 07:12 WBC (4.8-10.8) X10*3/uL RBC (4.20-5.50) X10*6/uL Hgb (12.0-16.0) g/dl Hct (37.0-47.0) % MCV (80.0-98.0) fL MCH (27.0-33.0) pg MCHC (31.0-35.0) g/dl RDW (11.0-16.0) % Plt Count (160-400) X10*3/uL MPV (9.4-12.3) fL Immature Gran % (Auto) (0.0-0.4) % Neut % (Auto) (45-73) % Lymph % (Auto) (20-40) % [place] % (Auto) (2-11) % Eos % (Auto) (0-4) % Baso % (Auto) (0-2) % Lymph # (Auto) (1.2-4.9) X10*3/uL [place] # (Auto) (0.1-1.2) X10*3/uL Eos # (Auto) (0.0-0.4) X10*3/uL Baso # (Auto) (0.0-0.2) X10*3/uL Abs Immat Gran (auto) (0.00-0.03) X10*3/uL Absolute Neuts (auto) (2.0-8.3) x10*3/uL Absolute Nucleated RBC (0.0-0.012) X10*3/uL Nucleated RBC % (auto) (0.0-0.2) /100WBC Sodium (135-145) mmol/L Potassium (3.3-5.1) mmol/L Chloride (96-108) mmol/L Carbon Dioxide (22-29) mmol/L Anion Gap (12-20) BUN (9-16) mg/dL Creatinine (0.5-1.4) mg/dL Estim Creat Clear Calc Estimated GFR POC Glucose (60-115) mg/dL Random Glucose (60-115) mg/dL Calcium (8.4-10.2) mg/dL Total Bilirubin (0.0-1.0) mg/dL AST (5-31) U/L ALT (0-31) U/L Alkaline Phosphatase (39-117) U/L Troponin I High Sens < 3.5 (<3.5-17.0) ng/L Total Protein (6.5-8.0) g/dL Albumin (3.5-5.0) g/dL Lipase (8-78) U/L <Kyler Limon - Last Filed: 01/02/23 16:45> Lab Results 01/02/23 01/02/23 01/03/23 Range/Units 17:31 17:31 05:48 WBC 9.5 (4.8-10.8) X10*3/uL RBC 5.11 (4.20-5.50) X10*6/uL Hgb 13.7 (12.0-16.0) g/dl Hct 43.6 (37.0-47.0) % MCV 85.3 (80.0-98.0) fL MCH 26.8 L (27.0-33.0) pg MCHC 31.4 (31.0-35.0) g/dl RDW 13.6 (11.0-16.0) % Plt Count 373 (160-400) X10*3/uL MPV 8.9 L (9.4-12.3) fL Immature Gran % (Auto) 0.4 (0.0-0.4) % Neut % (Auto) 76.9 H (45-73) % Lymph % (Auto) 16.1 L (20-40) % [place] % (Auto) 6.1 (2-11) % Eos % (Auto) 0.3 (0-4) % Baso % (Auto) 0.2 (0-2) % Lymph # (Auto) 1.5 (1.2-4.9) X10*3/uL [place] # (Auto) 0.6 (0.1-1.2) X10*3/uL Eos # (Auto) 0.0 (0.0-0.4) X10*3/uL Baso # (Auto) 0.0 (0.0-0.2) X10*3/uL Abs Immat Gran (auto) 0.04 H (0.00-0.03) X10*3/uL Absolute Neuts (auto) 7.3 (2.0-8.3) x10*3/uL Absolute Nucleated RBC 0.000 (0.0-0.012) X10*3/uL Nucleated RBC % (auto) 0.0 (0.0-0.2) /100WBC Sodium 142 (135-145) mmol/L Potassium 4.5 (3.3-5.1) mmol/L Chloride 103 (96-108) mmol/L Carbon Dioxide 29 (22-29) mmol/L Anion Gap 15 (12-20) BUN 14 (9-16) mg/dL Creatinine 0.70 (0.5-1.4) mg/dL Estim Creat Clear Calc 115.9 Estimated GFR > 60 POC Glucose 121 H (60-115) mg/dL Random Glucose 132 H (60-115) mg/dL Calcium 9.6 (8.4-10.2) mg/dL Total Bilirubin 0.4 (0.0-1.0) mg/dL AST 15 (5-31) U/L ALT 20 (0-31) U/L Alkaline Phosphatase 100 (39-117) U/L Troponin I High Sens (<3.5-17.0) ng/L Total Protein 7.2 (6.5-8.0) g/dL Albumin 4.2 (3.5-5.0) g/dL Lipase 166 H (8-78) U/L 01/03/23 Range/Units 07:12 WBC (4.8-10.8) X10*3/uL RBC (4.20-5.50) X10*6/uL Hgb (12.0-16.0) g/dl Hct (37.0-47.0) % MCV (80.0-98.0) fL MCH (27.0-33.0) pg MCHC (31.0-35.0) g/dl RDW (11.0-16.0) % Plt Count (160-400) X10*3/uL MPV (9.4-12.3) fL Immature Gran % (Auto) (0.0-0.4) % Neut % (Auto) (45-73) % Lymph % (Auto) (20-40) % [place] % (Auto) (2-11) % Eos % (Auto) (0-4) % Baso % (Auto) (0-2) % Lymph # (Auto) (1.2-4.9) X10*3/uL [place] # (Auto) (0.1-1.2) X10*3/uL Eos # (Auto) (0.0-0.4) X10*3/uL Baso # (Auto) (0.0-0.2) X10*3/uL Abs Immat Gran (auto) (0.00-0.03) X10*3/uL Absolute Neuts (auto) (2.0-8.3) x10*3/uL Absolute Nucleated RBC (0.0-0.012) X10*3/uL Nucleated RBC % (auto) (0.0-0.2) /100WBC Sodium (135-145) mmol/L Potassium (3.3-5.1) mmol/L Chloride (96-108) mmol/L Carbon Dioxide (22-29) mmol/L Anion Gap (12-20) BUN (9-16) mg/dL Creatinine (0.5-1.4) mg/dL Estim Creat Clear Calc Estimated GFR POC Glucose (60-115) mg/dL Random Glucose (60-115) mg/dL Calcium (8.4-10.2) mg/dL Total Bilirubin (0.0-1.0) mg/dL AST (5-31) U/L ALT (0-31) U/L Alkaline Phosphatase (39-117) U/L Troponin I High Sens < 3.5 (<3.5-17.0) ng/L Total Protein (6.5-8.0) g/dL Albumin (3.5-5.0) g/dL Lipase (8-78) U/L <Hilary Ramirez DO - Last Filed: 01/03/23 08:17> Independent Interpretation I performed an independent interpretation of an: EKG and CT Scan <Hilary Ramirez DO - Last Filed: 01/03/23 08:17> Interpretation: Rate: 70 Rhythm: NSR [place]: left Normal P waves. Normal STACI. Normal QRS complex. ST T wave : normal no RUBA qTC: normal prior studies: no acute ischemia The study has been interpreted contemporaneously by me. <Hilary Ramirez DO - Last Filed: 01/03/23 08:17> External Record Review External record reviewed: Office record <Hilary Ramirez DO - Last Filed: 01/03/23 08:17> Discharge Plan Discharge Clinical Impression: Fatty liver, Nausea Abdominal pain Qualifiers: Abdominal location: epigastric Qualified Code(s): R10.13 - Epigastric pain <Kyler Limon - Last Filed: 01/02/23 16:45> Patient Disposition: Home, Self-Care <Kyler Limon - Last Filed: 01/02/23 16:45> Instructions: Acute Nausea and Vomiting (ED), Abdominal Pain (ED) <Kyler Limon - Last Filed: 01/02/23 16:45> Additional Instructions: return to ED for any worsening symptoms or concerns please return for worsening pain, fevers, vomiting, black or bloody stools. stick with a bland diet, decrease your dairy intake for 2 days. get an over the counter probiotic as well to help with diarrhea. follow up with your doctor in the next 1 to 2 weeks to discuss your fatty liver <Kyler Limon - Last Filed: 01/02/23 16:45> Prescriptions: New ondansetron 4 mg tablet,disintegrating 4 mg PO Q8H PRN (Reason: nausea and vomiting) Qty: 20 0RF No Action albuterol sulfate 90 mcg/actuation HFA aerosol inhaler 2 puff inhalation Q6H PRN (Reason: shortness of breath or wheezing) Qty: 6.7 0RF benzonatate [Tessalon Perles] 100 mg capsule 100 mg PO TID PRN (Reason: cough) Qty: 10 0RF diphenhydramine HCl [Benadryl] 25 mg capsule 25 mg PO BEDTIME <Kyler Limon - Last Filed: 01/02/23 16:45>
[2023-01-02 17:38] LABS: MANUAL DIFF FLAG NO
[2023-01-02 17:41] LABS: Basophils Percent Auto 0.2 % (0-2); Eosinophils Percent Auto 0.3 % (0-4); Hematocrit 43.6 % (37.0-47.0); Hemoglobin 13.7 g/dl (12.0-16.0); Imm Gran Abs Auto 0.04 X10*3/uL (0.00-0.03); Imm Gran Pct Auto 0.4 % (0.0-0.4); Lymphocytes Absolute Auto 1.5 X10*3/uL (1.2-4.9); Lymphocytes Percent Auto 16.1 % (20-40); Mean Corpuscular HGB Conc 31.4 g/dl (31.0-35.0); Mean Corpuscular Hemoglobin 26.8 pg (27.0-33.0); Mean Corpuscular Volume 85.3 fL (80.0-98.0); Mean Platelet Volume 8.9 fL (9.4-12.3); Monocytes Absolute Auto 0.6 X10*3/uL (0.1-1.2); Monocytes Percent Auto 6.1 % (2-11); Neutrophils Absolute Auto 7.3 x10*3/uL (2.0-8.3); Neutrophils Percent Auto 76.9 % (45-73); Platelet Count 373 X10*3/uL (160-400); Red Blood Count 5.11 X10*6/uL (4.20-5.50); Red Cell Distribution Width 13.6 % (11.0-16.0); White Blood Count 9.5 X10*3/uL (4.8-10.8)
[2023-01-02 18:17] LABS: Alanine Aminotransferase 20 U/L (0-31); Albumin Level 4.2 g/dL (3.5-5.0); Alkaline Phosphatase 100 U/L (39-117); Anion Gap 15 (12-20); Aspartate Amino Transferase 15 U/L (5-31); Bilirubin Total 0.4 mg/dL (0.0-1.0); Blood Urea Nitrogen 14 mg/dL (9-16); Calcium 9.6 mg/dL (8.4-10.2); Carbon Dioxide 29 mmol/L (22-29); Chloride 103 mmol/L (96-108); Creatinine Clr Calc Pharmacy 115.9; Estimated Glomerular Filt Rate > 60; Glucose Random 132 mg/dL (60-115); Lipase 166 U/L (8-78); Potassium 4.5 mmol/L (3.3-5.1); Sodium 142 mmol/L (135-145); Total Protein 7.2 g/dL (6.5-8.0)
[2023-01-03 02:15] VITALS: BP 164/80; PULSE 80; RESP 16; TEMP 36.2; O2SAT 96
[2023-01-03 04:59] VITALS: BP 127/63; PULSE 79; RESP 16; TEMP 36.4; O2SAT 97
--- NOTE | 2023-01-03 05:43 | ECG_ITS ---
Test Reason : ABD PAIN Blood Pressure : / mmHG Vent. Rate : 070 BPM Atrial Rate : 070 BPM P-R Int : 200 ms QRS Dur : 090 ms QT Int : 394 ms P-R-T Axes : -11 046 034 degrees QTc Int : 425 ms Normal sinus rhythm Normal ECG When compared with ECG of 11-NOV-2017 16:27, No significant change was found Referred By: Generic ED Physician Electronically Signed By:CHIDI MACKENZIE MD
[2023-01-03 05:56] LABS: Glucose, Whole Blood 121 mg/dL (60-115)
--- NOTE | 2023-01-03 07:05 | PC.NURSE ---
this rn assumed care of pt @ 0500. pt changed into gown, placed on cardiac cath technician, iv placed, ekg obtained. vss. pt brought down to CT for ordered imaging
[2023-01-03] MEDS: iohexoL 350 MG/ML 100 ML INFUS..BTL IV (07:11)
[2023-01-03 07:31] VITALS: BP 136/75; PULSE 70; RESP 13; TEMP 36.6; O2SAT 98
[2023-01-03 07:40] LABS: Troponin-I High Sensitivity < 3.5 ng/L (<3.5-17.0)
[2023-01-03] MEDS: ondansetron HCL 4 MG/2 ML VIAL IVPUSH (07:43)
[2023-01-03] MEDS: Acetaminophen 325 MG TABLET 650 MG PO (07:43)
[2023-01-03] MEDS: Lactated Ringers 1,000 ML 999 ML IV (07:49)
[2023-01-03 10:08] VITALS: BP 125/72; PULSE 75; RESP 15; O2SAT 98
== END 2023-01-03 10:15 | disposition home or self-care (01) ==
PROVIDERS: Physician Assistant; Emergency Provider Emergency Medicine; PCP General Practice
DX: K76.0 Fatty (change of) liver, not elsewhere classified (principal); R11.0 Nausea; E11.9 Type 2 diabetes mellitus without complications; R10.13 Epigastric pain; Z90.710 Acquired absence of both cervix and uterus; Z98.51 Tubal ligation status
CPT/HCPCS: 36415; 74177; 80053; 82947; 83690; 84484; 85025; 93005; 96374; 99284; J2405; Q9967

== ENCOUNTER 2023-07-15 10:50 | Outpatient (REF) | payer MEDICAID, SELFPAY ==
[2023-07-15 12:27] LABS: Cholesterol 214 mg/dL (<200); HDL Cholesterol 42 mg/dL (>40); LDL Cholesterol Calculated 138 mg/dL (<100); Triglycerides 173 mg/dL (<150)
== END 2023-07-15 10:51 | disposition home or self-care (01) ==
LOC: HO.HHCL 10:50
PROVIDERS: Visit Provider General Practice
DX: E78.49 Other hyperlipidemia (principal)
CPT/HCPCS: 36415; 80061

== ENCOUNTER 2023-07-18 18:46 | Emergency (ER) | payer MEDICAID, SELFPAY ==
--- NOTE | ~2023-07-18 | XR_ITS ---
EXAMINATION: XR CHEST 2 VIEWS CLINICAL INFORMATION: Chest pain. COMPARISON: Prior chest radiograph, most recently 09/12/2022; CTA chest dated 05/25/2009. TECHNIQUE: Frontal and lateral views of the chest were obtained. FINDINGS: The heart, great vessels, pulmonary vasculature and mediastinum are normal. The lungs show no focal infiltrate, effusion or pneumothorax. A 7 mm nodule is questioned overlapping the anterior left seventh rib on the frontal view only, alternatively possibly related to confluence of bony structures. There is no acute osseous abnormality. XR/XR chest 2V IMPRESSION: 1. No focal infiltrate or congestive heart failure is seen. 2. Question 7 mm nodule overlapping the left seventh rib on the frontal view. Recommend repeat frontal, bilateral oblique and apical lordotic chest radiographs to ensure the density persists, CT evaluation may be considered.
--- NOTE | ~2023-07-18 | CT_ITS ---
EXAMINATION: CT CHEST WITHOUT CONTRAST CLINICAL INFORMATION: Left chest opacity. COMPARISON: None available. TECHNIQUE: Multidetector volumetric CT imaging of the chest was done. Axial MIP volume rendering provided. Sagittal and coronal reformatted images were obtained. This CT examination was performed using dose optimization techniques as appropriate, variously including the following: *Automated exposure control *Adjustment of mA and/or kV according to patient size (this includes techniques or standardized protocols for targeted exams where dose is matched to indication/reason for exam; i.e. 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 There is a 3 mm nodule subpleural based left lower lobe axial image 335/9, 2 mm calcified nodule right lower lobe axial image 342/9. No large nodule seen in the left lung to corroborate chest x-ray findings. Focal thickening right anterior minor fissure is noted. MEDIASTINUM: The thyroid lobes are symmetrical with a small hypodense nodule 9 mm in lower pole left lobe. Heart size and the great vessels are normal caliber. There is no pericardial effusion seen. CORONARY ARTERY CALCIFICATION: None visualized on this study. PLEURA: There is no pleural effusion. No pleural mass or thickening. AXILLA: No lymphadenopathy. UPPER ABDOMEN: Visualized liver, spleen, pancreas and bilateral adrenal glands are unremarkable. OSSEOUS STRUCTURES: No aggressive lytic or sclerotic process seen. There is moderate ventral spondylosis CT/CT chest wo IV con IMPRESSION: There is no nodule seen left lower lobe to corroborate reason chest x-ray findings. There are 3 mm noncalcified left lower lobe and 2 mm calcified right lower lobe nodules. No abnormal mediastinal adenopathy. Fleischner guidelines were followed.
--- NOTE | 2023-07-18 18:48 | ECG_ITS ---
Test Reason : chest pain Blood Pressure : / mmHG Vent. Rate : 079 BPM Atrial Rate : 079 BPM P-R Int : 200 ms QRS Dur : 088 ms QT Int : 362 ms P-R-T Axes : 027 046 026 degrees QTc Int : 415 ms Normal sinus rhythm Cannot rule out Anterior infarct , age undetermined Abnormal ECG When compared with ECG of 03-JAN-2023 06:06, No significant change was found Referred By: Sabiha Rodriguez Electronically Signed By:KADE WILLIAMSON
[2023-07-18 19:01] VITALS: BP 154/85; PULSE 76; TEMP 36.8; O2SAT 97; BMI 51.9
--- NOTE | 2023-07-18 19:04 | ED.CHESTPAIN ---
HPI - Chest Pain General Chief Complaint: Chest Pain Stated Complaint: Chest Pain/Back Pain/Neck Pain Time Seen by Provider: 07/18/23 19:57 Source: patient Mode of arrival: ambulatory History of Present Illness HPI narrative: 58-year-old female with history of diabetes and hypertension comes in with a couple of days back pain that she states then turned into left-sided chest pain that is tight and worsens with deep inspiration, at this time she is asymptomatic. She denies any associated fever, chills, cough, sore throat, GI or symptoms. Related Data Home Medications Medication Instructions Recorded Confirmed diphenhydramine HCl 25 mg capsule 25 mg PO BEDTIME 09/19/20 11/25/20 (Benadryl) Previous Rx's Medication Instructions Recorded albuterol sulfate 90 mcg/actuation 2 puff inhalation Q6H PRN 05/27/21 aerosol inhaler shortness of breath or wheezing #6.7 grams benzonatate 100 mg capsule 100 mg PO TID PRN cough #10 caps 05/27/21 (Tessalon Perles) ondansetron 4 mg disintegrating 4 mg PO Q8H PRN nausea and 01/03/23 tablet vomiting #20 tabs Allergies Allergy/AdvReac Type Severity Reaction Status Date / Time penicillin G [Penicillin G] Allergy Unknown RASH Verified 07/18/23 19:09 penicillin V Allergy Unknown rash Verified 07/18/23 19:09 Review of Systems Review of Systems: Pertinent positives and negatives as stated in HPI PMFSH Past Medical History Source: nursing notes reviewed Medical History Tubular adenoma Seizure Diabetes mellitus Surgical History Hx of knee surgery History of hysterectomy History of colonoscopy Family History Family History Father No problems noted. 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 GENERAL: Elevated BMI, Well developed, well nourished, in no acute distress. HEAD: Normocephalic/atraumatic EYES: PERRLA, EOMI EARS: Ext canals without abnormality NOSE: Nares patent bilateral OROPHARYNX: no oral lesions noted, posterior pharynx clear NECK: Supple, no adenopathy LUNGS: Normal breath sounds. No adventitious sounds or accessory muscle use. SpO2<98> CARDIOVASCULAR: Regular rate and rhythm without noted murmurs ABDOMEN: Soft, non-tender, non-distended with bowel sounds. MUSCULOSKELETAL: No tenderness, deformities, or effusions noted on gross inspection. EXTREMITIES: No cyanosis, clubbing or edema. SKIN: Inspection of the skin reveals no rashes NEUROLOGIC: Alert and oriented x 4. Strength and sensation to light touch were grossly intact x 4. Course Course Course Narrative: This is an RME: Additional HPI, ROS, PE not included below will be deferred to primary provider. This is a [id number]-female, with a hx of diabetes and hypertension, presenting to the emergency department with a complaint of chest pain x 3 days. Reporting episodes of sweating and nausea. Chest pain is intermittent and lasts for several minutes and resolves on its own. VSS. 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 Plan: Chest x-ray, EKG, labs Medical Decision Making Medical Decision Making MDM Narrative: 58-year-old female with history and clinical presentation, DDX: Musculoskeletal, costochondritis, referred from the back pain, less likely pneumonia or ACS. I reviewed all investigations and hematologic indices are grossly within normal limits without leukocytosis/left shift, anemia, or thrombocytopenia. Chemistry indices are within normal limits without KATHY and there are no electrolyte or liver enzyme derangements, high sensitivity troponin is undetectable. Chest x-ray is without infiltrate but was a questionable 7 mm nodule overlying the left 7th rib and recommendation was for follow-up of CT chest which was completed and there was no 7 mm nodule identified on CT of the chest and otherwise no acute findings. All results and findings were discussed with patient at bedside and she was informed that her pain is felt to be musculoskeletal in nature and possibly a costochondritis. She is otherwise discharged home in stable condition. Differential Diagnosis Differential Diagnoses: The differential diagnosis associated with the presentation includes Please see the discussion above Admission/Observation Consideration of admission/observation: Escalation of care including admission/observation considered Please see the discussion above Lab Data MDM Lab Attestation statement: I reviewed the patient's lab results. Please see the discussion above 07/18/23 19:54 07/18/23 19:54 Labs: Lab Results 07/18/23 Range/Units 19:54 WBC 8.5 (4.8-10.8) X10*3/uL RBC 4.69 (4.20-5.50) X10*6/uL Hgb 12.7 (12.0-16.0) g/dl Hct 40.0 (37.0-47.0) % MCV 85.3 (80.0-98.0) fL MCH 27.1 (27.0-33.0) pg MCHC 31.8 (31.0-35.0) g/dl RDW 14.7 (11.0-16.0) % Plt Count 352 (160-400) X10*3/uL MPV 9.0 L (9.4-12.3) fL Immature Gran % (Auto) 0.2 (0.0-0.4) % Neut % (Auto) 68.8 (45-73) % Lymph % (Auto) 23.4 (20-40) % [place] % (Auto) 6.5 (2-11) % Eos % (Auto) 0.9 (0-4) % Baso % (Auto) 0.2 (0-2) % Lymph # (Auto) 2.0 (1.2-4.9) X10*3/uL [place] # (Auto) 0.6 (0.1-1.2) X10*3/uL Eos # (Auto) 0.1 (0.0-0.4) X10*3/uL Baso # (Auto) 0.0 (0.0-0.2) X10*3/uL Abs Immat Gran (auto) 0.02 (0.00-0.03) X10*3/uL Absolute Neuts (auto) 5.9 (2.0-8.3) x10*3/uL Absolute Nucleated RBC 0.000 (0.0-0.012) X10*3/uL Nucleated RBC % (auto) 0.0 (0.0-0.2) /100WBC Sodium 141 (135-145) mmol/L Potassium 4.6 (3.3-5.1) mmol/L Chloride 104 (96-108) mmol/L Carbon Dioxide 29 (22-29) mmol/L Anion Gap 13 (12-20) BUN 19 H (9-16) mg/dL Creatinine 0.90 (0.5-1.4) mg/dL Estim Creat Clear Calc 89.8 Estimated GFR > 60 Random Glucose 134 H (60-115) mg/dL Calcium 10.0 (8.4-10.2) mg/dL Total Bilirubin 0.3 (0.0-1.0) mg/dL Direct Bilirubin 0.1 (0.0-0.5) mg/dL AST 11 (5-31) U/L ALT 14 (0-31) U/L Alkaline Phosphatase 85 (39-117) U/L Troponin I High Sens < 2.7 (<3.5-17.0) ng/L Total Protein 7.3 (6.5-8.0) g/dL Albumin 3.9 (3.5-5.0) g/dL Independent Interpretation I performed an independent interpretation of an: EKG Interpretation: Normal sinus rhythm, HR-79, no STEMI, you are/QRS/QTC is within normal limits. Radiology Impression Discussion of test interpretation with radiology: I have reviewed the radiologist's reading. Radiologist Impression: Please see the discussion above External Record Review External record reviewed: Outpatient record, Prior outpatient labs and Prior outpatient radiology Chronic Conditions Patient?s care impacted by: Diabetes and Hypertension Discharge Plan Discharge Clinical Impression: Atypical chest pain Patient Disposition: Home, Self-Care Instructions: Chest Wall Pain (ED) Additional Instructions: 1. Resume all home medications as prescribed. 2. Please follow-up with your primary care doctor by calling the office in the morning and setting up an appointment for re-evaluation further outpatient management. Return to the ER for any worsening symptoms. Prescriptions: No Action albuterol sulfate 90 mcg/actuation HFA aerosol inhaler 2 puff inhalation Q6H PRN (Reason: shortness of breath or wheezing) Qty: 6.7 0RF benzonatate [Tessalon Perles] 100 mg capsule 100 mg PO TID PRN (Reason: cough) Qty: 10 0RF ondansetron 4 mg tablet,disintegrating 4 mg PO Q8H PRN (Reason: nausea and vomiting) Qty: 20 0RF diphenhydramine HCl [Benadryl] 25 mg capsule 25 mg PO BEDTIME
[2023-07-18 19:57] LABS: MANUAL DIFF FLAG NO
[2023-07-18 19:59] LABS: Basophils Percent Auto 0.2 % (0-2); Eosinophils Absolute Auto 0.1 X10*3/uL (0.0-0.4); Eosinophils Percent Auto 0.9 % (0-4); Hemoglobin 12.7 g/dl (12.0-16.0); Imm Gran Abs Auto 0.02 X10*3/uL (0.00-0.03); Imm Gran Pct Auto 0.2 % (0.0-0.4); Lymphocytes Percent Auto 23.4 % (20-40); Mean Corpuscular HGB Conc 31.8 g/dl (31.0-35.0); Mean Corpuscular Hemoglobin 27.1 pg (27.0-33.0); Mean Corpuscular Volume 85.3 fL (80.0-98.0); Monocytes Absolute Auto 0.6 X10*3/uL (0.1-1.2); Monocytes Percent Auto 6.5 % (2-11); Neutrophils Absolute Auto 5.9 x10*3/uL (2.0-8.3); Neutrophils Percent Auto 68.8 % (45-73); Platelet Count 352 X10*3/uL (160-400); Red Blood Count 4.69 X10*6/uL (4.20-5.50); Red Cell Distribution Width 14.7 % (11.0-16.0); White Blood Count 8.5 X10*3/uL (4.8-10.8)
[2023-07-18 20:12] VITALS: BP 147/83; PULSE 83; RESP 16; TEMP 36.7
[2023-07-18 20:16] LABS: Alanine Aminotransferase 14 U/L (0-31); Albumin Level 3.9 g/dL (3.5-5.0); Alkaline Phosphatase 85 U/L (39-117); Anion Gap 13 (12-20); Aspartate Amino Transferase 11 U/L (5-31); Bilirubin Direct 0.1 mg/dL (0.0-0.5); Bilirubin Total 0.3 mg/dL (0.0-1.0); Blood Urea Nitrogen 19 mg/dL (9-16); Carbon Dioxide 29 mmol/L (22-29); Chloride 104 mmol/L (96-108); Creatinine Clr Calc Pharmacy 89.8; Estimated Glomerular Filt Rate > 60; Glucose Random 134 mg/dL (60-115); Potassium 4.6 mmol/L (3.3-5.1); Sodium 141 mmol/L (135-145); Total Protein 7.3 g/dL (6.5-8.0)
[2023-07-18 20:28] LABS: Troponin-I High Sensitivity < 2.7 ng/L (<3.5-17.0)
[2023-07-18 21:55] VITALS: BP 146/83; PULSE 69; RESP 16; TEMP 36.6; O2SAT 98
[2023-07-18] MEDS: Ibuprofen 400 MG TABLET PO (22:34)
[2023-07-18] MEDS: Acetaminophen 325 MG TABLET 975 MG PO (22:34)
== END 2023-07-18 22:39 | disposition home or self-care (01) ==
PROVIDERS: Physician Assistant Medical; Emergency Provider Student in an Organized Health Care Education/Training Program; PCP General Practice
DX: R07.89 Other chest pain (principal); E11.9 Type 2 diabetes mellitus without complications; I10 Essential (primary) hypertension; E66.9 Obesity, unspecified; Z68.43 Body mass index [BMI] 50.0-59.9, adult; Z79.899 Other long term (current) drug therapy
CPT/HCPCS: 36415; 71046; 71250; 80048; 80076; 84484; 85025; 93005; 99284; 99285

== ENCOUNTER 2023-07-30 08:52 | Outpatient (REF) | payer MEDICAID, SELFPAY ==
[2023-08-01 15:48] LABS: TS Negative Control Passed; TS Panel A 1; TS Panel B 1; TS Positive Control Passed; TSpotTB Negative (Negative)
== END 2023-07-30 08:53 | disposition home or self-care (01) ==
LOC: HO.HHCL 08:52
PROVIDERS: Visit Provider General Practice
DX: Z11.1 Encounter for screening for respiratory tuberculosis (principal)
CPT/HCPCS: 36415; 86481

== ENCOUNTER 2023-12-10 02:16 | Emergency (ER) | payer MEDICAID, SELFPAY ==
--- NOTE | ~2023-12-10 | CT_ITS ---
EXAMINATION: CT ABDOMEN AND PELVIS WITH CONTRAST CLINICAL INFORMATION: Upper abdominal pain and tenderness. COMPARISON: CT abdomen pelvis 01/03/2023 TECHNIQUE: Multidetector volumetric images were obtained from the superior aspect of the liver through the pubic symphysis following administration 85 mL of Omnipaque 350 intravenous contrast. Sagittal and coronal reformatted images were obtained on the technologist's workstation. Oral contrast: No This CT examination was performed using dose optimization techniques as appropriate, variously including the following: *Automated exposure control *Adjustment of mA and/or kV according to patient size (this includes techniques or standardized protocols for targeted exams where dose is matched to indication/reason for exam; i.e. extremities or head) *Use of iterative reconstruction technique DLP: 1372 mGy-cm FINDINGS: LUNG BASES: The visualized lung bases are unremarkable. There is mild mitral valve calcification. LIVER, GALLBLADDER, AND BILIARY TREE: The liver mildly enlarged measuring 19 cm. It has normal shape with mild hypo-attenuation. No focal hepatic lesion or biliary ductal dilatation is present. The gallbladder is unremarkable with no evidence of radiopaque gallstones, gallbladder wall thickening, or obvious pericholecystic inflammatory changes. PANCREAS: Unremarkable. SPLEEN: Unremarkable. ADRENAL GLANDS: Unremarkable. KIDNEYS AND URETERS: The kidneys are normal in size, shape, and attenuation. No hydronephrosis, hydroureter, or calculi seen. No perinephric stranding. BLADDER: Unremarkable. GASTROINTESTINAL TRACT: There is scattered stool and gas seen throughout the colon without significant distention. The small bowel loops are normal caliber. Appendix is normal caliber. No free air or free fluid seen. ABDOMINAL WALL: No significant hernia is appreciated. LYMPH NODES: Normal. VASCULAR: Unremarkable. PELVIC VISCERA: The uterus is anteverted and appears unremarkable. No adnexal mass or free fluid no abnormal pelvic lymphadenopathy. OSSEOUS STRUCTURES: Moderate ventral spondylosis mid dorsal spine. There is a small hemangioma L1 and L5 vertebra mild facet joint arthropathy L5-S1 and L4-L5 disc levels. CT/CT abdomen pelvis w IV con IMPRESSION: 1. No acute intra-abdominal process seen. 2. Mild hepatomegaly with hepatic steatosis. Fleischner guidelines were followed.
--- NOTE | ~2023-12-10 | XR_ITS ---
EXAMINATION: XR CHEST CLINICAL INFORMATION: Chest pain/ACS. COMPARISON: None available. TECHNIQUE: Frontal view of the chest was obtained. FINDINGS: No significant abnormality is noted involving the heart, lungs, mediastinum, bony thorax or soft tissues. XR/XR chest 1V IMPRESSION: Unremarkable chest examination.
[2023-12-10 02:19] VITALS: BP 138/98; PULSE 80
[2023-12-10 02:30] VITALS: BP 148/87; PULSE 74; RESP 14; TEMP 36.4; O2SAT 97; BMI 51.9
--- NOTE | 2023-12-10 02:35 | ECG_ITS ---
Test Reason : ABD PAIN Blood Pressure : / mmHG Vent. Rate : 073 BPM Atrial Rate : 073 BPM P-R Int : 200 ms QRS Dur : 090 ms QT Int : 370 ms P-R-T Axes : -10 039 025 degrees QTc Int : 407 ms Normal sinus rhythm Cannot rule out Anterior infarct (cited on or before 18-JUL-2023) Abnormal ECG When compared with ECG of 18-JUL-2023 18:50, No significant change was found Referred By: Alfredo Chappell Electronically Signed By:KENNY THAPA
[2023-12-10 02:48] LABS: Basophils Percent Auto 0.3 % (0-2); Eosinophils Absolute Auto 0.1 X10*3/uL (0.0-0.4); Eosinophils Percent Auto 1.2 % (0-4); Hematocrit 38.8 % (37.0-47.0); Hemoglobin 12.2 g/dl (12.0-16.0); Imm Gran Abs Auto 0.02 X10*3/uL (0.00-0.03); Imm Gran Pct Auto 0.3 % (0.0-0.4); Lymphocytes Absolute Auto 2.3 X10*3/uL (1.2-4.9); Lymphocytes Percent Auto 29.4 % (20-40); MANUAL DIFF FLAG NO; Mean Corpuscular HGB Conc 31.4 g/dl (31.0-35.0); Mean Corpuscular Hemoglobin 26.5 pg (27.0-33.0); Mean Corpuscular Volume 84.3 fL (80.0-98.0); Mean Platelet Volume 8.6 fL (9.4-12.3); Monocytes Absolute Auto 0.5 X10*3/uL (0.1-1.2); Monocytes Percent Auto 6.1 % (2-11); Neutrophils Absolute Auto 4.9 x10*3/uL (2.0-8.3); Neutrophils Percent Auto 62.7 % (45-73); Platelet Count 331 X10*3/uL (160-400); Red Cell Distribution Width 13.9 % (11.0-16.0); White Blood Count 7.8 X10*3/uL (4.8-10.8)
[2023-12-10 03:03] LABS: Alanine Aminotransferase 25 U/L (0-31); Albumin Level 3.8 g/dL (3.5-5.0); Alkaline Phosphatase 83 U/L (39-117); Anion Gap 11 (12-20); Aspartate Amino Transferase 14 U/L (5-31); Bilirubin Total 0.2 mg/dL (0.0-1.0); Blood Urea Nitrogen 20 mg/dL (9-16); Calcium 9.6 mg/dL (8.4-10.2); Carbon Dioxide 29 mmol/L (22-29); Chloride 104 mmol/L (96-108); Creatinine Clr Calc Pharmacy 113.9; Estimated Glomerular Filt Rate > 60; Glucose Random 120 mg/dL (60-115); Potassium 3.9 mmol/L (3.3-5.1); Sodium 140 mmol/L (135-145); Total Protein 7.2 g/dL (6.5-8.0)
[2023-12-10 04:21] VITALS: BP 147/78; PULSE 70; RESP 18; TEMP 36.6; O2SAT 97
--- NOTE | 2023-12-10 04:23 | MHC.EDTECH ---
Hourly rounds and vitals completed,Urine sample collected and sent to lab,warm blanket giving and call lyons in reach
[2023-12-10 04:30] LABS: Appearance Urine Clear; Color Urine Yellow; Glucose Urine UA Negative (Negative); Leukocyte Esterase Urine Negative (Negative); Nitrite Urine Negative (Negative); Specific Gravity - Urine 1.015 (1.005-1.025); Urine Blood Negative (Negative); Urine Ketones Negative (Negative); Urine Protein Negative (Neg-Trace)
--- NOTE | 2023-12-10 05:09 | ECG_ITS ---
Test Reason : REPEAT/ABD PAIN Blood Pressure : / mmHG Vent. Rate : 073 BPM Atrial Rate : 073 BPM P-R Int : 196 ms QRS Dur : 088 ms QT Int : 376 ms P-R-T Axes : -12 047 038 degrees QTc Int : 414 ms Normal sinus rhythm Normal ECG When compared with ECG of 10-DEC-2023 02:40, No significant change was found Referred By: Alfredo Chappell Electronically Signed By:KENNY THAPA
--- NOTE | 2023-12-10 05:14 | ED_ITS ---
HPI - General Adult General Chief complaint: Abdominal Pain Stated complaint: abd pain Time Seen by Provider: 12/10/23 04:51 History of Present Illness HPI narrative: The patient is a 58-year-old woman with a history of type 2 diabetes who was morbidly obese. She says that a week ago last Saturday she developed upper abdominal pain that bothered her for about 3 or 4 days. It was associated with diarrhea. She says that over the weekend she still did not feel very well but was feeling better yesterday and had no discomfort when she went to bed last night at around 22:30. This morning she woke up at 01:00 with pain in her epigastrium. This was associated with nausea and she vomited twice. She called an ambulance and was brought to the hospital. No shortness of breath. No fevers. No ongoing diarrhea. The patient says that she has had a hysterectomy and a unilateral oophorectomy. No other abdominal surgeries. Related Data Home Medications Medication Instructions Recorded Confirmed diphenhydramine HCl 25 mg capsule 25 mg PO BEDTIME 09/19/20 11/25/20 (Benadryl) Previous Rx's Medication Instructions Recorded albuterol sulfate 90 mcg/actuation 2 puff inhalation Q6H PRN 05/27/21 aerosol inhaler shortness of breath or wheezing #6.7 grams benzonatate 100 mg capsule 100 mg PO TID PRN cough #10 caps 05/27/21 (Tessalon Tanya) ondansetron 4 mg disintegrating 4 mg PO Q8H PRN nausea and 01/03/23 tablet vomiting #20 tabs Allergies Allergy/AdvReac Type Severity Reaction Status Date / Time penicillin G [Penicillin G] Allergy Unknown RASH Verified 07/18/23 19:09 penicillin V Allergy Unknown rash Verified 07/18/23 19:09 Review of Systems 2 Review of Systems: Yes all other systems are reviewed and are negative PMF Past Medical History Medical History Tubular adenoma Seizure Diabetes mellitus Surgical History Hx of knee surgery History of hysterectomy History of colonoscopy Family History Family History Father No problems noted. 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 She does not appear in obvious distress or discomfort. She does not appear toxic. HENMT Other: The appearance of the face is unremarkable. The face is symmetrical. Mucous membranes moist. Eyes Other: Pupils are round equal, conjunctivae are clear, extraocular movements intact Neck Other: Neck is supple Resp Effort & Inspection: normal respiratory effort Auscultation: clear to auscultation bilaterally Cardio Rate: regular rate Rhythm: regular rhythm Heart sounds: S1 normal heart sound present and S2 normal heart sound present GI Other: The patient is tender across her upper abdomen. Tenderness is most apparent in the epigastrium. Both upper quadrants are also tender. Lower abdomen is nontender. Skin Other: Skin is dry and unremarkable. Neuro Other: The patient is awake, alert, pleasant, cooperative. Speech is clear. Face is symmetrical. She moves her extremities normally. Gait is normal. She is grossly neurologically intact. Extrem Other: No pitting edema. Medications Administered Discontinued Medications Generic Name Dose Route Start Last Admin Trade Name Freq PRN Reason Stop Dose Admin Aspirin 243 mg 12/10/23 06:52 12/10/23 07:50 Aspirin 81 Mg Tab.Chew PO 12/10/23 06:53 243 mg ONCE ONE Administration Atorvastatin Calcium 80 mg 12/10/23 07:09 12/10/23 07:50 Atorvastatin Calcium 80 Mg Tablet PO 12/10/23 07:10 80 mg ONCE ONE Administration Droperidol 1.25 mg 12/10/23 05:07 12/10/23 05:18 Droperidol 5 Mg/2 Ml Vial IVPUSH 12/10/23 05:08 1.25 mg ONCE ONE Administration Famotidine 20 mg 12/10/23 05:07 12/10/23 05:18 Famotidine/Pf 20 Mg/2 Ml Vial IVPUSH 12/10/23 05:08 20 mg ONCE ONE Administration Sodium Chloride 1,000 mls @ 999 mls/hr 12/10/23 05:15 12/10/23 06:21 Ns IV 12/10/23 06:15 Infused .Q1H1M THUAN Infusion Iohexol 100 ml 12/10/23 05:55 12/10/23 05:55 Iohexol 350 Mg/Ml 100 Ml Infus..Btl IV 12/10/23 05:56 85 ml ONCE ONE Administration Ticagrelor 180 mg 12/10/23 07:22 12/10/23 07:50 Ticagrelor 90 Mg Tablet PO 12/10/23 07:23 180 mg ONCE ONE Administration Medical Decision Making Medical Decision Making MDM Narrative: The patient is a 58-year-old female who woke up this morning at 01:00 with epigastric discomfort. She describes having had similar pain for several days early last week. She also describes having associated diarrhea. The patient's initial EKG showed some very subtle signs of ST segment elevation in the inferior leads without any reciprocal changes. The patient's history and physical seemed much more likely to be consistent with an intra-abdominal process than an acute coronary syndrome. I added on troponin the patient's initial labs. The initial troponin was undetectable. The patient had resolution of her discomfort following famotidine and droperidol. Second EKG showed virtually no ST segment changes. A 3 hour troponin however was 64, considerable rise. Again the patient was pain-free at that time. The patient was given oral aspirin. Cardiology was consulted and they recommend heparin, atorvastatin, and ticagrelor and transferred to [facility]. I spoke to the patient's daughter on the phone and explained the patient's condition and the need to go to [facility]. Case discussed with Dr. Calvert of Interventional Cardiology at [facility] and we agreed that the patient was not having an acute STEMI requiring emergency cardiac catheterization. The patient remains pain-free. The patient will be transferred to the CCU under Dr. Caballero. Lab Data 12/10/23 02:44 12/10/23 02:44 Labs: Lab Results 12/10/23 12/10/23 12/10/23 Range/Units 02:44 04:19 06:05 WBC 7.8 (4.8-10.8) X10*3/uL RBC 4.60 (4.20-5.50) X10*6/uL Hgb 12.2 (12.0-16.0) g/dl Hct 38.8 (37.0-47.0) % MCV 84.3 (80.0-98.0) fL MCH 26.5 L (27.0-33.0) pg MCHC 31.4 (31.0-35.0) g/dl RDW 13.9 (11.0-16.0) % Plt Count 331 (160-400) X10*3/uL MPV 8.6 L (9.4-12.3) fL Immature Gran % (Auto) 0.3 (0.0-0.4) % Neut % (Auto) 62.7 (45-73) % Lymph % (Auto) 29.4 (20-40) % [place] % (Auto) 6.1 (2-11) % Eos % (Auto) 1.2 (0-4) % Baso % (Auto) 0.3 (0-2) % Lymph # (Auto) 2.3 (1.2-4.9) X10*3/uL [place] # (Auto) 0.5 (0.1-1.2) X10*3/uL Eos # (Auto) 0.1 (0.0-0.4) X10*3/uL Baso # (Auto) 0.0 (0.0-0.2) X10*3/uL Abs Immat Gran (auto) 0.02 (0.00-0.03) X10*3/uL Absolute Neuts (auto) 4.9 (2.0-8.3) x10*3/uL Absolute Nucleated RBC 0.000 (0.0-0.012) X10*3/uL Nucleated RBC % (auto) 0.0 (0.0-0.2) /100WBC Sodium 140 (135-145) mmol/L Potassium 3.9 (3.3-5.1) mmol/L Chloride 104 (96-108) mmol/L Carbon Dioxide 29 (22-29) mmol/L Anion Gap 11 L (12-20) BUN 20 H (9-16) mg/dL Creatinine 0.71 (0.5-1.4) mg/dL Estim Creat Clear Calc 113.9 Estimated GFR > 60 Random Glucose 120 H (60-115) mg/dL Calcium 9.6 (8.4-10.2) mg/dL Total Bilirubin 0.2 (0.0-1.0) mg/dL AST 14 (5-31) U/L ALT 25 (0-31) U/L Alkaline Phosphatase 83 (39-117) U/L Troponin I High Sens < 2.7 64.2 H* D (<3.5-17.0) ng/L C-Reactive Protein 1.32 H (< or = 0.50) mg/dL Total Protein 7.2 (6.5-8.0) g/dL Albumin 3.8 (3.5-5.0) g/dL Lipase 39 (8-78) U/L Urine Color Yellow Urine Appearance Clear Urine pH 6.0 (5.0-9.0) Ur Specific [place] 1.015 (1.005-1.025) Urine Protein Negative (Neg-Trace) mg/dL Urine Glucose (UA) Negative (Negative) mg/dL Urine Ketones Negative (Negative) mg/dL Urine Blood Negative (Negative) Urine Nitrite Negative (Negative) Ur Leukocyte Esterase Negative (Negative) Independent Interpretation I performed an independent interpretation of an: EKG Interpretation: EKG at 02:40 shows normal sinus rhythm at 73 beats per minute. There were some subtle changes in the inferior leads suggestive of some minimal ST segment elevation. The morphology was not markedly different from a previous EKG from 07/18/2023 and there were no reciprocal changes. A repeat EKG at 05:23 shows a similar morphology but with less suggestion of an ST segment elevation in the inferior leads. Radiology Impression Discussion of test interpretation with radiology: I have reviewed the radiologist's reading. Radiologist Impression: CT of the abdomen and pelvis show no acute findings in the abdomen and pelvis. Critical Care Time Critical Care Time Critical Care Time: Yes Total Critical Care Time: 35 Attestation: The patient was critically ill with a high probability of imminent or life- threatening deterioration. ?I spent greater than 30 minutes of discontinuous time evaluating the patient, delivering critical care at the bedside, discussing evaluating data with consultants. ?Critical care time does not include time spent performing separately billable procedures or teaching. ?Time spent performing critical care with 35 minutes. Discharge Plan Discharge Clinical Impression: Acute coronary syndrome, Elevated troponin Patient Disposition: [facility] Prescriptions: No Action albuterol sulfate 90 mcg/actuation HFA aerosol inhaler 2 puff inhalation Q6H PRN (Reason: shortness of breath or wheezing) Qty: 6.7 0RF benzonatate [Tessalon Perles] 100 mg capsule 100 mg PO TID PRN (Reason: cough) Qty: 10 0RF ondansetron 4 mg tablet,disintegrating 4 mg PO Q8H PRN (Reason: nausea and vomiting) Qty: 20 0RF diphenhydramine HCl [Benadryl] 25 mg capsule 25 mg PO BEDTIME
[2023-12-10 05:16] LABS: C Reactive Protein 1.32 mg/dL (< or = 0.50); Lipase 39 U/L (8-78)
[2023-12-10] MEDS: Famotidine/PF 20 MG/2 ML VIAL IVPUSH (05:18)
[2023-12-10] MEDS: droPERidol 5 MG/2 ML VIAL 1.25 MG IVPUSH (05:18)
[2023-12-10] MEDS: 0.9 % Sodium Chloride 1,000 ML 999 ML IV (05:20)
--- NOTE | 2023-12-10 05:26 | MHC.EDTECH ---
Repeat EKG taken per order and signed by provider.
[2023-12-10 05:33] LABS: Troponin-I High Sensitivity < 2.7 ng/L (<3.5-17.0)
[2023-12-10] MEDS: iohexoL 350 MG/ML 100 ML INFUS..BTL IV (05:55)
[2023-12-10 06:20] VITALS: BP 151/72; PULSE 73; RESP 18; TEMP 36.6; O2SAT 97
--- NOTE | 2023-12-10 06:21 | MHC.EDTECH ---
Hourly rounds and vitals completed,patient is resting comfortably at this time.
[2023-12-10 06:36] LABS: Troponin-I High Sensitivity 64.2 ng/L (<3.5-17.0)
--- NOTE | 2023-12-10 06:44 | ECG_ITS ---
Test Reason : REPEAT/ELEVATED TROP Blood Pressure : / mmHG Vent. Rate : 073 BPM Atrial Rate : 073 BPM P-R Int : 192 ms QRS Dur : 090 ms QT Int : 368 ms P-R-T Axes : 064 038 049 degrees QTc Int : 405 ms Normal sinus rhythm Normal EKG When compared with ECG of 10-DEC-2023 05:23, No significant change was found Referred By: Alfredo Chappell Electronically Signed By:KENNY THAPA
--- NOTE | 2023-12-10 06:52 | MHC.EDTECH ---
Repeat EKG per order and signed by provider. Patient ambulated to the bathroom with a steady gait.
[2023-12-10 07:33] VITALS: BMI 52.0
[2023-12-10 07:35] VITALS: BP 154/54; PULSE 94; RESP 18; TEMP 36.6; O2SAT 98
--- NOTE | 2023-12-10 07:38 | PC.NURSE ---
patient a&ox3, vss, pt currently denying pain/discomfort, pt to transfer to [facility] to ccu, pt to be started on heparin drip, provider speaking with family on phone with provider.
[2023-12-10] MEDS: Aspirin 81 MG TAB.CHEW 243 MG PO (07:50)
[2023-12-10] MEDS: Atorvastatin Calcium 80 MG TABLET PO (07:50)
[2023-12-10] MEDS: Ticagrelor 90 MG TABLET 180 MG PO (07:50)
--- NOTE | 2023-12-10 07:52 | PC.NURSE ---
called pharmacy for updated weight that was performed, heparin drip to be hung once weighted dose has been approved by pharmacy
--- NOTE | 2023-12-10 08:19 | PC.NURSE ---
pt to have PTT drawn before heparin drip can be hung
[2023-12-10 08:37] LABS: Hematocrit 39.5 % (37.0-47.0); Hemoglobin 12.9 g/dl (12.0-16.0); Mean Corpuscular HGB Conc 32.7 g/dl (31.0-35.0); Mean Corpuscular Volume 82.8 fL (80.0-98.0); Mean Platelet Volume 8.8 fL (9.4-12.3); Platelet Count 335 X10*3/uL (160-400); Red Blood Count 4.77 X10*6/uL (4.20-5.50); Red Cell Distribution Width 13.8 % (11.0-16.0); White Blood Count 7.6 X10*3/uL (4.8-10.8)
[2023-12-10 08:42] LABS: Prothrombin Time 12.3 SEC (11.1-13.3)
[2023-12-10 08:45] LABS: PTT Heparin Drip 28.9 SEC (53-77.9)
[2023-12-10] MEDS: Heparin Sodium,Porcine/1/2NS 25,000 UNIT/250 ML IV.SOLN 10 UNIT IVCONT (08:45)
--- NOTE | 2023-12-10 08:49 | PC.NURSE ---
heparin drip started per order
--- NOTE | 2023-12-10 09:25 | PC.NURSE ---
unable to take patient of ED tracker, spoke with pt registration- pt has been registered and should be able to take the patient off, will speak with charge nurse.
== END 2023-12-10 09:32 | disposition short-term general hospital (02) ==
PROVIDERS: Emergency Provider Emergency Medicine
DX: I24.9 Acute ischemic heart disease, unspecified (principal); R79.89 Other specified abnormal findings of blood chemistry; R10.10 Upper abdominal pain, unspecified; R19.7 Diarrhea, unspecified; R11.2 Nausea with vomiting, unspecified; E11.9 Type 2 diabetes mellitus without complications
CPT/HCPCS: 36415; 71045; 74177; 80053; 81003; 83690; 84484; 85025; 85027; 85610; 85730; 86140; 93005; 96361; 96374; 96375; 99285; J1644; J1790; Q9967

== ENCOUNTER → 2023-12-10 02:35 | Outpatient (BNV) | payer MEDICAID, SELFPAY | PROVIDERS: Emergency Provider Emergency Medicine; Visit Provider Internal Medicine | DX: R94.31 Abnormal electrocardiogram [ECG] [EKG] (principal); R10.9 Unspecified abdominal pain; R79.89 Other specified abnormal findings of blood chemistry | CPT/HCPCS: 93010 ==

== ENCOUNTER → 2023-12-10 23:59 | Outpatient (BNV) | payer MEDICAID, SELFPAY | PROVIDERS: Visit Provider Internal Medicine Cardiovascular Disease | DX: I21.4 Non-ST elevation (NSTEMI) myocardial infarction (principal) | CPT/HCPCS: 93458; 99152 ==

== ENCOUNTER 2024-02-21 08:53 | Outpatient (AMB) | payer MEDICAID, SELFPAY ==
--- NOTE | 2024-02-21 09:13 | A.OFFVIS_ITS ---
Vital Signs 02/21/24 09:16 Height 5 ft 2 in Weight 285 lb BMI 52.1 BP 133/85 Blood Pressure Location Lt brachial Position Sitting Pulse 73 Intake Visit Reasons: Colonoscopy screening Intake Note: Patient new consult for 3rd pre colonoscopy screening. Patient cc: abdominal pain with some bloating, diarrhea on and off, acid reflex with burning sensation, denies any other GI issues. Various Exceptionalities Teacher Required: No Accompanied by: Self / Same As Patient Allergies penicillin G [Penicillin G] Allergy (Unknown, Verified 02/21/24 09:09) RASH penicillin V Allergy (Unknown, Verified 02/21/24 09:09) rash Medication List - Last Reconciled 02/21/24 by Aliza Nails, PORTFOLIO ANALYST- albuterol sulfate 90 mcg/actuation 2 puffs inhalation Q6H PRN ascorbate calcium (vitamin C) 500 mg PO DAILY atorvastatin 10 mg PO BEDTIME diphenhydramine HCl (Benadryl) 25 mg PO BEDTIME dulaglutide (Trulicity) 1.5 mg subcut QWEEK lisinopril 40 mg PO DAILY HPI HPI Colonoscopy screening: Details: Tubular adenoma Plan Tubular adenoma found and rectum, no high-grade dysplasia or carcinoma seen, however due to the fact that the polyp (3-4 mm) was in the rectum and sessile I will have her come back in 3 years to repeated colonoscopy. Patient was also instructed to come back sooner if she will have any symptoms of unintentional weight loss, rectal bleeding, melena or ribbon like stool. I also explained to her that she should have her sibling as well as her children get early colorectal screening. She verbalizes understanding and is agreeable to plan of care Status post colonoscopy Plan Patient reports that she has been feeling very well after colonoscopy. Denies any GI symptoms. She will come back for pre colonoscopy screening again in 3 years. Sooner if any GI symptoms return. Patient verbalizes understanding and is agreeable to plan of care. She was given the opportunity to ask questions and all questions answered. TODAY'S VISIT: Patient is here today for colonoscopy. Last colonoscopy 3 years ago showed tubular adenoma. Patient denies any issues with anesthesia in the past. No history of sleep apnea. No longer is taking aspirin. Patient is on Trulicity and is taking the medications on Saturday. Patient would like to get the procedure on Saturday due to work schedule. Patient denies any melena, hematochezia, unintentional weight loss or ribbon like stools. Denies any dyspepsia, dysphagia or odynophagia. Patient denies any GI concerning symptoms. Did well with last colonoscopy no issues. ? PFSH Medical History Tubular adenoma Seizure Diabetes mellitus Surgical History Hx of knee surgery History of hysterectomy History of colonoscopy Family History Father No problems noted. 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 of Systems Const Denies weight gain and Denies weight loss ENT Reports no additional complaints, Denies dysphagia and Denies odynophagia Card Reports no additional complaints Resp Reports no additional complaints GI Denies abdominal pain, Denies belching, Denies melena, Denies bloating, Denies change in bowel habits, Denies dysphagia, Denies excessive flatus, Denies dyspepsia, Denies heartburn, Denies diarrhea, Denies loose stools, Denies nausea, Denies odynophagia and Denies vomiting Musc Reports no additional complaints Neuro Reports no additional complaints Psych Reports no additional complaints Endo Reports no additional complaints Physical Exam Vital Signs: Last Vital Signs Pulse 73 02/21/24 09:16 BP 133/85 02/21/24 09:16 BMI result Body Mass Index 52.1 Const General: healthy appearing and no acute distress Nutritional Appearance: obese Orientation/consciousness: patient oriented x3 Resp Effort & Inspection: normal respiratory effort, able to speak in complete sentences, no tracheal deviation and symmetric chest movement Auscultation: clear to auscultation bilaterally Cardio Rate: regular rate GI Inspection: Yes normal to inspection, No distended and Yes obesity Palpation (GI): Soft to palpation, not firm, nontender and No hepatosplenomegaly present Auscultation: normal bowel sounds General: Yes no CVA tenderness Back/Spine/Pelvis Back: no CVA tenderness Skin General skin exam: elasticity normal, turgor normal and dry skin Neuro General: patient oriented x3 Psych Appearance: grossly normal Mental Status: mental status grossly normal Assessment & Plan Assessment & Plan (1) Tubular adenoma: Code(s): D36.9 - Benign neoplasm, unspecified site Category: Medical (2) Screen for colon cancer: Code(s): Z12.11 - Encounter for screening for malignant neoplasm of colon Plan Patient denies any GI, cardiac or respiratory symptoms. ?Patient is on Trulicity. Takes Trulicity on Mondays. Would like to schedule procedure on Saturday. Denies any issues with anesthesia in the past.? Denies any history of sleep apnea.? No history infectious diseases in the past or present.? Not on any anticoagulation therapy.? Last colonoscopy tubular adenoma found.? Patient denies melena, hematochezia, unintentional weight loss or ribbon like stools.? Discussed at length the pre-procedure,? prep, diet & medications as well as what to expect prior, during and after the procedure.?? Stressed the importance of good bowel prep. ?Recommended the use of Vaseline or Calmoseptine OTC & baby wipes with bowel movements to promote comfort.? ?Patient verbalizes understanding and agrees to plan of care.? She was given the opportunity to ask questions and all questions answered.? We will see her after the procedure.? Medications: New bisacodyl (Dulcolax (bisacodyl)) take 4 tabs at noon the day before your colonoscopy 20 mg (4 x 5 mg) PO ONCE 1 day 4 tabs 0RF Z12.11 - Encounter for screening for malignant neoplasm of colon polyethylene glycol 3350 (Miralax) As directed by gastroenterology department at [facility] 238 grams PO ONCE 238 grams 0RF Z12.11 - Encounter for screening for malignant neoplasm of colon
[2024-02-21 09:16] VITALS: BP 133/85; PULSE 73; BMI 52.1
== END 2024-02-21 09:35 | disposition home or self-care (01) ==
PROVIDERS: PCP General Practice; Visit Provider Nurse Practitioner Family
DX: D36.9 Benign neoplasm, unspecified site (principal); Z12.11 Encounter for screening for malignant neoplasm of colon
CPT/HCPCS: 99203

== ENCOUNTER → 2024-02-21 08:53 | Outpatient (BNVA) | payer MEDICAID, SELFPAY | PROVIDERS: Visit Provider Nurse Practitioner Family | DX: Z12.11 Encounter for screening for malignant neoplasm of colon (principal); Z79.85 Long-term (current) use of injectable non-insulin antidiabetic drugs; D36.9 Benign neoplasm, unspecified site | CPT/HCPCS: 99212 ==

== ENCOUNTER 2024-04-01 09:17 | Outpatient (REF) | payer MEDICAID, SELFPAY ==
--- NOTE | ~2024-04-01 | XR_ITS ---
EXAMINATION: XR SHOULDER, RIGHT CLINICAL INFORMATION: Pain without trauma. COMPARISON: None available. TECHNIQUE: AP external rotation, Grashey, scapular Y, and axillary views of the right shoulder. FINDINGS: Bony alignment is normal. There is mild bony demineralization. The glenohumeral joint is intact. The acromioclavicular and coracoclavicular intervals are normal. No fracture or dislocation is seen. There is mild calcific tendinitis of the right rotator cuff insertion. No foreign body is seen. There is no right pneumothorax. XR/XR shoulder RT min 2V IMPRESSION: There is mild calcific tendinitis of the right rotator cuff insertion. No fracture or dislocation is seen.
== END 2024-04-01 09:18 | disposition home or self-care (01) ==
LOC: HO.HHCX 09:17
PROVIDERS: Visit Provider Internal Medicine
DX: M25.511 Pain in right shoulder (principal)
CPT/HCPCS: 73030

== ENCOUNTER 2024-05-05 08:58 | Outpatient (REF) | payer MEDICAID, SELFPAY ==
--- NOTE | ~2024-05-05 | MM_ITS ---
EXAMINATION: MM SCREENING DIGITAL BREAST TOMOSYNTHESIS, BILATERAL CLINICAL INFORMATION: Screening. Asymptomatic. COMPARISON: Mammography: This study is compared with prior exams dating back to 2018. TECHNIQUE: Digital breast tomosynthesis is performed in both the craniocaudal and mediolateral oblique views along with computer-aided detection (CAD). Synthesized 2D images are generated from the tomosynthesis. FINDINGS: There are scattered areas of fibroglandular density (ACR BI-RADS breast composition Category b). There are no significant masses, abnormal calcifications, or other abnormalities. There is a tissue marker in the right breast from prior benign percutaneous biopsy. MM/MM tomosynthesis screening BI IMPRESSION: No mammographic evidence of malignancy. ASSESSMENT: BI-RADS BI-RADS 2 - Benign Findings RECOMMENDATION: Routine annual mammography screening. 1 year F/U This examination should not preclude the clinical evaluation of a suspicious palpable abnormality. This patient's information was entered into a reminder system with a target due date for their next mammogram.
== END 2024-05-05 08:59 | disposition home or self-care (01) ==
LOC: HO.MAMMO 08:58
PROVIDERS: PCP General Practice; Visit Provider General Practice
DX: Z12.31 Encounter for screening mammogram for malignant neoplasm of breast (principal)
CPT/HCPCS: 77063; 77067

== ENCOUNTER → 2024-05-05 09:30 | Outpatient (BNV) | payer MEDICAID, SELFPAY | PROVIDERS: PCP General Practice; Visit Provider Radiology Diagnostic Radiology | DX: Z12.31 Encounter for screening mammogram for malignant neoplasm of breast (principal) | CPT/HCPCS: 77063; 77067 ==

== ENCOUNTER 2024-06-05 13:29 | Emergency (ER) | payer MEDICAID, SELFPAY ==
--- NOTE | ~2024-06-05 | US_ITS ---
EXAMINATION: US VENOUS WITH DOPPLER UPPER EXTREMITY, RIGHT CLINICAL INFORMATION: Right arm pain. COMPARISON: None available. TECHNIQUE: Ultrasound of the upper extremity is performed using compression sonography and color and pulse Doppler flow with assessment of augmentation of flow. There is also imaging and Doppler assessment of the jugular and subclavian veins. Spectral analysis with color-flow imaging is performed. FINDINGS: Respiratory variation, normal compression, and augmented flow are noted throughout the upper extremity including the axillary, brachial, cubital, and radial and ulnar veins. There is normal flow in the internal jugular and subclavian veins. There is no visible deep or superficial thrombophlebitis. If the patient's symptoms progress, a followup ultrasound in 5 -7 days might be of value to exclude proximal propagation from a nonvisualized distal arm vein. US/US venous duplex UE RT IMPRESSION: No DVT demonstrated in the right upper extremity.
[2024-06-05 13:37] VITALS: BP 174/96; PULSE 79; RESP 16; TEMP 36.2; O2SAT 97; BMI 53.8
--- NOTE | 2024-06-05 13:37 | ED.GENADULT ---
HPI - General Adult General Chief complaint: Neck Pain/Injury Stated complaint: pain r shoulder neck back Time Seen by Provider: 06/05/24 14:39 History of Present Illness HPI narrative: General appearance uncomfortable no acute distress The head is normocephalic atraumatic The neck is supple, there is tenderness to the right lateral neck and right trapezius, no midline tenderness, range of motion is good The chest is clear to auscultation bilateral there is very mild tenderness on the anterior right shoulder but there is no chest wall tenderness or pain with a deep breath Lung sounds are clear to auscultation bilateral Heart no murmur auscultated Abdomen soft nontender Extremities the right arm had full range of motion in elbow wrist and hand, range of motion in the shoulder was mildly limited on extension abduction and external rotation, there was mild anterior tenderness Pulse in the right wrist was 2+ and symmetric with the left wrist easily palpated, skin color was normal no pallor or dusky appearance, motor and sensation intact in distal extremity Other extremities normal Neuro motor is 5/5 x4, sensation intact and symmetrical distal extremities, gait and balance are normal, interaction comprehension and expression are all normal Related Data Home Medications ?Medication ?Instructions ?Recorded ?Confirmed diphenhydramine HCl 25 mg capsule 25 mg PO BEDTIME 09/19/20 02/21/24 (Benadryl) ascorbate calcium (vitamin C) 500 500 mg PO DAILY 02/21/24 02/21/24 mg tablet atorvastatin 10 mg tablet 10 mg PO BEDTIME 02/21/24 02/21/24 dulaglutide 1.5 mg/0.5 mL 1.5 mg subcut QWEEK 02/21/24 02/21/24 subcutaneous pen injector (Trulicity) lisinopril 40 mg tablet 40 mg PO DAILY 02/21/24 02/21/24 Previous Rx's ?Medication ?Instructions ?Recorded albuterol sulfate 90 mcg/actuation 2 puff inhalation Q6H PRN 05/27/21 aerosol inhaler shortness of breath or wheezing #6.7 grams bisacodyl 5 mg tablet,delayed 20 mg (4 x 5 mg) PO ONCE 1 day #4 02/21/24 release (Dulcolax (bisacodyl)) tabs polyethylene glycol 3350 17 238 g PO ONCE #238 grams 02/21/24 gram/dose oral powder (Miralax) acetaminophen 500 mg tablet 1,000 mg (2 x 500 mg) PO QID PRN 06/05/24 pain #30 tabs cyclobenzaprine 5 mg tablet 5 mg PO TID PRN muscle spasm #14 06/05/24 tabs oxycodone 5 mg tablet 5 mg PO Q6H PRN pain #14 tabs 06/05/24 Allergies Allergy/AdvReac Type Severity Reaction Status Date / Time penicillin G [Penicillin G] Allergy Unknown RASH Verified 06/05/24 13:41 penicillin V Allergy Unknown rash Verified 06/05/24 13:41 [facility] Past Medical History Medical History Tubular adenoma Seizure Diabetes mellitus Surgical History Hx of knee surgery History of hysterectomy History of colonoscopy Family History Family History Father No problems noted. 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 Patient is a 58-year-old female who presents to emergency department for evaluation of posterior right shoulder pain extending to the right lateral neck and down into her right anterior chest with associated pain down to her hand and subjective swelling. Onset 2 days ago. Pain is exacerbated with movement of the arm. States history of tendonitis to the arm. Had atypical chest pain 12/2023, transient inferior ST elevations, underwent diagnostic angiogram for mild NSTEMI -- thought to be secondary to mild myocarditis. XR R shoulder 04/01/24 mild calcific tendonitis of the rotator cuff insertion Plan: Labs, EKG Patient has history of RI diagnosed several months ago, today her pain is all confined to the right neck the right arm it is all reproducible with movement, she denies any chest pain or epigastric pain, she has no shortness of breath no diaphoresis, her symptoms are continuous with movement and not related to exertion EKG was a normal sinus rhythm, no acute ST changes, no acute ischemic changes and was similar to prior EKG done 12/10/2023, intervals were normal QT was normal Ultrasound to rule out DVT in the upper extremity was negative Troponin was 2.7, the issue of the right neck pain radiating down the arm has been going on continuously for 3 days No other acute findings on chemistry CBC was without acute abnormality Patient with reproducible right neck and arm pain easily reproduced with movement likely has a pinched nerve radiating down the arm and is discharged Medications Administered Discontinued Medications Generic Name Dose Route Start Last Admin Trade Name Luidn PRN Reason Stop Dose Admin Acetaminophen 975 mg 06/05/24 17:08 06/05/24 17:23 Acetaminophen 325 Mg Tablet PO 06/05/24 17:09 975 mg ONCE ONE Administration Medical Decision Making Lab Data [facility] Lab Attestation statement: I reviewed the patient's lab results. 06/05/24 13:55 06/05/24 13:55 Labs: Lab Results 06/05/24 Range/Units 13:55 WBC 7.2 (4.8-10.8) X10*3/uL RBC 4.50 (4.20-5.50) X10*6/uL Hgb 12.3 (12.0-16.0) g/dl Hct 38.5 (37.0-47.0) % MCV 85.6 (80.0-98.0) fL MCH 27.3 (27.0-33.0) pg MCHC 31.9 (31.0-35.0) g/dl RDW 14.7 (11.0-16.0) % Plt Count 334 (160-400) X10*3/uL MPV 9.0 L (9.4-12.3) fL Immature Gran % (Auto) 0.4 (0.0-0.4) % Neut % (Auto) 66.7 (45-73) % Lymph % (Auto) 23.3 (20-40) % [place] % (Auto) 8.1 (2-11) % Eos % (Auto) 1.1 (0-4) % Baso % (Auto) 0.4 (0-2) % Lymph # (Auto) 1.7 (1.2-4.9) X10*3/uL [place] # (Auto) 0.6 (0.1-1.2) X10*3/uL Eos # (Auto) 0.1 (0.0-0.4) X10*3/uL Baso # (Auto) 0.0 (0.0-0.2) X10*3/uL Abs Immat Gran (auto) 0.03 (0.00-0.03) X10*3/uL Absolute Neuts (auto) 4.8 (2.0-8.3) x10*3/uL Absolute Nucleated RBC 0.000 (0.0-0.012) X10*3/uL Nucleated RBC % (auto) 0.0 (0.0-0.2) /100WBC Sodium 140 (135-145) mmol/L Potassium 4.5 (3.3-5.1) mmol/L Chloride 106 (96-108) mmol/L Carbon Dioxide 28 (22-29) mmol/L Anion Gap 11 L (12-20) BUN 22 H (9-16) mg/dL Creatinine 0.79 (0.5-1.4) mg/dL Estim Creat Clear Calc 104.6 Estimated GFR > 60 Random Glucose 141 H (60-115) mg/dL Calcium 9.3 (8.4-10.2) mg/dL Total Bilirubin 0.2 (0.0-1.0) mg/dL AST 11 (5-31) U/L ALT 19 (0-31) U/L Alkaline Phosphatase 83 (39-117) U/L Troponin I High Sens < 2.7 D (<3.5-17.0) ng/L Total Protein 7.1 (6.5-8.0) g/dL Albumin 3.8 (3.5-5.0) g/dL Lipase 40 (8-78) U/L Discharge Plan Discharge Clinical Impression: Pain in right shoulder, Pinched nerve Patient Disposition: Home, Self-Care Additional Instructions: Your pulses were normal in both arms, no sign of lost circulation now An ultrasound of her right arm did not show any blood clots in the arm The most likely cause of the pain shooting down from your neck and shoulder area is a pinched nerve If the arm turns blue or white or pain increases and becomes more severe return immediately to the emergency room to be checked again Otherwise follow routinely with primary care doctor for further evaluation of possible pinched nerve Return any time any worse condition or any concerns Prescriptions: New oxycodone 5 mg tablet 5 mg PO Q6H PRN (Reason: pain) Qty: 14 0RF Rx Instructions: Partial Fill upon patient request. cyclobenzaprine 5 mg tablet 5 mg PO TID PRN (Reason: muscle spasm) Qty: 14 0RF acetaminophen 500 mg tablet 1,000 mg PO QID PRN (Reason: pain) Qty: 30 0RF No Action albuterol sulfate 90 mcg/actuation HFA aerosol inhaler 2 puff inhalation Q6H PRN (Reason: shortness of breath or wheezing) Qty: 6.7 0RF diphenhydramine HCl [Benadryl] 25 mg capsule 25 mg PO BEDTIME lisinopril 40 mg tablet 40 mg PO DAILY ascorbate calcium (vitamin C) 500 mg tablet 500 mg PO DAILY atorvastatin 10 mg tablet 10 mg PO BEDTIME Trulicity 1.5 mg/0.5 mL pen injector 1.5 mg subcut QWEEK bisacodyl [Dulcolax (bisacodyl)] 5 mg tablet,delayed release (DR/EC) 20 mg PO ONCE 1 Days Qty: 4 0RF Rx Instructions: take 4 tabs at noon the day before your colonoscopy polyethylene glycol 3350 [Miralax] 17 gram/dose powder 238 g PO ONCE Qty: 238 0RF Rx Instructions: As directed by gastroenterology department at [facility] Discharge Date/Time: 06/05/24 17:26 Print Language: Greenlandic
--- NOTE | 2024-06-05 13:40 | ECG_ITS ---
Test Reason : CHEST PAIN Blood Pressure : / mmHG Vent. Rate : 078 BPM Atrial Rate : 078 BPM P-R Int : 194 ms QRS Dur : 086 ms QT Int : 368 ms P-R-T Axes : 001 037 029 degrees QTc Int : 419 ms Normal sinus rhythm Cannot rule out Anterior infarct (cited on or before 05-JUN-2024) Abnormal ECG When compared with ECG of 10-DEC-2023 06:47, No significant change was found Referred By: Natalie Plata Electronically Signed By:Jeffrey Calvert
[2024-06-05 14:00] LABS: MANUAL DIFF FLAG NO
[2024-06-05 14:01] LABS: Basophils Percent Auto 0.4 % (0-2); Eosinophils Absolute Auto 0.1 X10*3/uL (0.0-0.4); Eosinophils Percent Auto 1.1 % (0-4); Hematocrit 38.5 % (37.0-47.0); Hemoglobin 12.3 g/dl (12.0-16.0); Imm Gran Abs Auto 0.03 X10*3/uL (0.00-0.03); Imm Gran Pct Auto 0.4 % (0.0-0.4); Lymphocytes Absolute Auto 1.7 X10*3/uL (1.2-4.9); Lymphocytes Percent Auto 23.3 % (20-40); Mean Corpuscular HGB Conc 31.9 g/dl (31.0-35.0); Mean Corpuscular Hemoglobin 27.3 pg (27.0-33.0); Mean Corpuscular Volume 85.6 fL (80.0-98.0); Monocytes Absolute Auto 0.6 X10*3/uL (0.1-1.2); Monocytes Percent Auto 8.1 % (2-11); Neutrophils Absolute Auto 4.8 x10*3/uL (2.0-8.3); Neutrophils Percent Auto 66.7 % (45-73); Platelet Count 334 X10*3/uL (160-400); Red Cell Distribution Width 14.7 % (11.0-16.0); White Blood Count 7.2 X10*3/uL (4.8-10.8)
[2024-06-05 14:18] LABS: Alanine Aminotransferase 19 U/L (0-31); Albumin Level 3.8 g/dL (3.5-5.0); Alkaline Phosphatase 83 U/L (39-117); Anion Gap 11 (12-20); Aspartate Amino Transferase 11 U/L (5-31); Bilirubin Total 0.2 mg/dL (0.0-1.0); Blood Urea Nitrogen 22 mg/dL (9-16); Calcium 9.3 mg/dL (8.4-10.2); Carbon Dioxide 28 mmol/L (22-29); Chloride 106 mmol/L (96-108); Creatinine Clr Calc Pharmacy 104.6; Estimated Glomerular Filt Rate > 60; Glucose Random 141 mg/dL (60-115); Lipase 40 U/L (8-78); Potassium 4.5 mmol/L (3.3-5.1); Sodium 140 mmol/L (135-145); Total Protein 7.1 g/dL (6.5-8.0)
[2024-06-05 14:29] LABS: Troponin-I High Sensitivity < 2.7 ng/L (<3.5-17.0)
[2024-06-05 17:18] VITALS: BP 146/96; PULSE 73; RESP 16; TEMP 36.4; O2SAT 100
[2024-06-05] MEDS: Acetaminophen 325 MG TABLET 975 MG PO (17:23)
[2024-06-05 17:25] VITALS: BP 146/96; PULSE 73; RESP 16; TEMP 36.4; O2SAT 100
== END 2024-06-05 17:26 | disposition home or self-care (01) ==
PROVIDERS: Nurse Practitioner Family; Emergency Provider Student in an Organized Health Care Education/Training Program; PCP General Practice
DX: M25.511 Pain in right shoulder (principal); G58.9 Mononeuropathy, unspecified; M54.2 Cervicalgia; E11.9 Type 2 diabetes mellitus without complications; Z79.899 Other long term (current) drug therapy
CPT/HCPCS: 36415; 80053; 83690; 84484; 85025; 93005; 93971; 99284

== ENCOUNTER → 2024-06-05 13:40 | Outpatient (BNV) | payer MEDICAID, SELFPAY | PROVIDERS: Emergency Provider Student in an Organized Health Care Education/Training Program; PCP General Practice; Visit Provider Internal Medicine Cardiovascular Disease | DX: R94.31 Abnormal electrocardiogram [ECG] [EKG] (principal) | CPT/HCPCS: 93010 ==

== ENCOUNTER 2024-08-03 08:51 | Day surgery (SDC) | payer MEDICAID, SELFPAY ==
--- NOTE | 2024-07-31 10:36 | HO.ANESPROP2 ---
HPI - Anesthesia Eval Consult details Narrative: 59yo F for?Colonoscopy Anesthesia Pre-Procedure Meds Is the patient on any of the following meds?: GLP1/DPP4 PMFSH Active Problems Active Problems: All Active Problems COVID-19 virus infection (Acute) Tubular adenoma (Acute) Past Medical History Medical History Tubular adenoma Seizure Diabetes mellitus Family History Family History Father No problems noted. 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 Allergies Allergy/AdvReac Type Severity Reaction Status Date / Time penicillin G [Penicillin G] Allergy Unknown RASH Verified 06/05/24 13:41 penicillin V Allergy Unknown rash Verified 06/05/24 13:41 Home Medications ?Medication ?Instructions ?Recorded ?Confirmed ?Last Taken ?Type diphenhydramine HCl 25 mg capsule 25 mg PO BEDTIME 09/19/20 02/21/24 Unknown History (Benadryl) ascorbate calcium (vitamin C) 500 500 mg PO DAILY 02/21/24 02/21/24 Unknown History mg tablet atorvastatin 10 mg tablet 10 mg PO BEDTIME 02/21/24 02/21/24 Unknown History dulaglutide 1.5 mg/0.5 mL 1.5 mg subcut QWEEK 02/21/24 02/21/24 Unknown History subcutaneous pen injector (Trulicity) lisinopril 40 mg tablet 40 mg PO DAILY 02/21/24 02/21/24 Unknown History Assessment and Plan Assessment Anesthesia Assessment: Chart Reviewed
--- NOTE | 2024-08-03 08:31 | MHC.SHP ---
Pre-Procedural Eval Section A - 24 Hr Update-Section A only Date of Service: 08/03/24 The patient is an INPATIENT: No The patient has been examined within 24 hours of the surgical procedure. The History & Physical has been completed within 30 days and I have reviewed it.: No Section B - Complete if H&P > 30 days Chief Complaint: Surveillance for colon polyps Relevant Family History (Specify if Yes): No Relevant Social History: None Present Medications: see Short Stay Collaborative assessment Medical History: Significant History (Tubular adenoma Seizure Diabetes mellitus) History of Previous Operations: Relevant previous surgery/procedure and date(s) (Hx of knee surgery History of hysterectomy History of colonoscopy) Allergies: Allergies Allergy/AdvReac Type Severity Reaction Status Date / Time penicillin G [Penicillin G] Allergy Unknown RASH Verified 06/05/24 13:41 penicillin V Allergy Unknown rash Verified 06/05/24 13:41 Review of Systems Sugical H&P ROS: Negative: Constitution, Cardiovascular, Respiratory and Gastrointestinal Exam Surgical H&P Exam: Normal: Heart, Normal: Lungs, Normal: Extremities and Normal: Abdomen Plan Diagnosis/Plan: Unchanged I have reviewed the history and physical and performed a pertinent physical examination on my patient. No changes have occurred unless specified. Time Spent With Patient Time: Total time managing care of this patient today ____ minutes.
[2024-08-03 09:15] VITALS: BMI 54.9
[2024-08-03] MEDS: Lactated Ringers 1,000 ML 100 ML IVCONT (09:33)
[2024-08-03 09:34] LABS: Glucose, Whole Blood 141 mg/dL (60-115)
--- NOTE | 2024-08-03 09:43 | HO.ANESPROP2 ---
[facility] Active Problems Active Problems: All Active Problems (Updated 06/06/24 @ 00:00 by Bill Romero) COVID-19 virus infection (Acute) Tubular adenoma (Acute) Past Medical History Medical History Tubular adenoma Seizure Diabetes mellitus Family History Family History Father No problems noted. Mother Family hx-asthma Hx of diabetes insipidus Hx of emphysema Family history of problems with anesthesia: No Surgical History Surgical History Hx of knee surgery History of hysterectomy History of colonoscopy History of Problems with Anesthesia: No Social History Social History Household Members: None Alcohol intake: never Patient Tobacco Use Status: Never used Tobacco Use of substances other than those prescribed or required for medical reasons: No Are you DNR?: No Advance Directives: No Advance Directives Information Provided: Yes Advance Directives on File: No Recently lost weight without trying: No Nutrition Risks: No Nutritional Risk Current occupational status: employed 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 [employer] Meds Allergies Allergy/AdvReac Type Severity Reaction Status Date / Time penicillin G [Penicillin G] Allergy Unknown RASH Verified 06/05/24 13:41 penicillin V Allergy Unknown rash Verified 06/05/24 13:41 Active Medications: Current Medications Lactated Ringer's (Lr) 1,000 mls @ 100 mls/hr IVCONT .Q10H THUAN Last Admin: 08/03/24 09:33 Dose: 100 mls/hr Home Medications ?Medication ?Instructions ?Recorded ?Confirmed ?Last Taken ?Type diphenhydramine HCl 25 mg capsule 25 mg PO BEDTIME 09/19/20 02/21/24 Unknown History (Benadryl) ascorbate calcium (vitamin C) 500 500 mg PO DAILY 02/21/24 02/21/24 Unknown History mg tablet atorvastatin 10 mg tablet 10 mg PO BEDTIME 02/21/24 02/21/24 Unknown History dulaglutide 1.5 mg/0.5 mL 1.5 mg subcut QWEEK 02/21/24 02/21/24 07/27/24 History subcutaneous pen injector (Trulicity) lisinopril 40 mg tablet 40 mg PO DAILY 02/21/24 02/21/24 Unknown History Exam Height,Weight and Vital Signs: Height 5 ft 2 in Weight 136.191 kg Pertinent Lab Results Pertinent Lab Results: Laboratory Tests 08/03/24 09:27 POC Glucose 141 H Airway Mallampati Class: III TM Dist: >3cm Neck ROM: Full Assessment and Plan Assessment Anesthesia Assessment: Anesthesia Plan Discussed and Chart Reviewed Final Anesthetic Review Family History of Problems with Anesthesia: No History of Problems with Anesthesia: No NPO: Yes ASA Class: III Final Preanesthetic Review: No Changes in Pt Med Stat, Meds/Allgs Chart Reviewed, Consent Obtained/Reviewed and Anes Risks/Benef Reviewed Patient Risk: Intermediate Procedure Risk: Low Anesthetic Plan Anesthetic Plan: TIVA Disposition: Standard PACU
--- NOTE | 2024-08-03 10:09 | HO.OPN-COLON ---
Colonoscopy Operative Note Operative Note Date of Service: 08/03/24 Narrative: COLONOSCOPY TILL CECUM WITH BIOPSIES AND SNARE POLYPECTOMY Pre-op diagnosis: Surveillance for colon polyps. Post-op diagnosis:? Colon polyps, Diverticulosis, hemorrhoids Endoscopist:? Shahla Haddad MD Anesthesia:?MAC Consent: Indications for the procedure and potential complications of bleeding, perforation, reaction to medications and missed diagnosis were discussed with the patient and informed consent was obtained. Instrument: Olympus PCF H 190 L variable stiffness pediatric colonoscope Monitoring: Vital signs and clinical assessment, intermittent blood pressure monitoring, continuous EKG monitoring, Pulse oximetry and Carbon Dioxide monitoring were done throughout the procedure. Please see anesthesia flowsheet. Colon withdrawl time was 20 minutes. Procedure: The patient was placed in the left lateral decubitis position and pre-procedure medications were administered. After a digital rectal examination of the ano-rectum, the video colonoscope was inserted into the rectum and advanced through the colon to the cecum. The colonoscope was slowly withdrawn in a retrograde panoramic fashion and the colon mucosa was carefully examined including a retroflexed view of the rectum. Findings and interventions are described below. Procedure Difficulty: Colon was long and tortuous and there was spasm and some loop formation Findings: Terminal Ileum: Not evaluated Cecum: Normal Ascending Colon: Normal Transverse Colon: A 7-8 mm sessile polyp in the proximal transverse colon - removed with a cold snare Descending Colon: Moderate diverticulosis Sigmoid Colon: Moderate diverticulosis Rectum: A 7- 8 mm sessile polyp just inside the anal verge (likely site of past polypectomy) - removed with a cold snare. Remaining polyp was removed with a cold biopsy Some bleeding noted from the polypectomy site controlled with application of 1 hemoclip Ano-rectum: Small internal hemorrhoids Colon preparation: Excellent, after some irrigation. [place] Bowel Preparation Scale Right colon; 3 Transverse colon: 3 Left colon; 3 (0 = Unprepared colon segment with mucosa not seen due to solid stool that cannot be cleared. 1 = Portion of mucosa of the colon segment seen, but other areas of the colon segment not well seen due to staining, residual stool and/or opaque liquid. 2 = Minor amount of residual staining, small fragments of stool and/or opaque liquid, but mucosa of colon segment seen well. 3 = Entire mucosa of colon segment seen well with no residual staining, small fragments of stool or opaque liquid) Impression and Post Procedure Diagnosis: Colonoscopy Findings: Two small polyps were removed Moderate diverticulosis seen in the left colon small hemorrhoids on retroflexed exam. Plan: Pt has a FU appointment on 08/21/24 with Chapis Nails NP Repeat Colonoscopy in 5 years if polyps are adenomatous and due to history of adenomatous colon polyps Above findings were reviewed with the patient and relevant handouts were given and the discharge area. BIOPSIES SHOWED: A. Colon, transverse, polypectomy: Colonic mucosa with mild surface hyperplastic changes. B. Rectum, polypectomy: Hyperplastic mucosal polyp Letter sent to the patient advising repeat colonoscopy in 5 years. Patient was placed on colonoscopy recall list.
[2024-08-03 10:14] VITALS: BP 133/78; PULSE 76; RESP 16; TEMP 36.2; O2SAT 98
[2024-08-03 10:29] VITALS: BP 138/87; PULSE 70; RESP 16; TEMP 36.4; O2SAT 100
== END 2024-08-03 11:02 | disposition home or self-care (01) ==
PROVIDERS: PCP General Practice; Visit Provider Internal Medicine Gastroenterology
PROC: 0DJD8ZZ Inspection of Lower Intestinal Tract, Via Natural or Artificial Opening Endoscopic (ICD-10-PCS; CPT 45378; principal; 2024-08-03 09:20)
DX: Z12.11 Encounter for screening for malignant neoplasm of colon (principal); Z86.010 Personal history of colon polyps; K63.5 Polyp of colon; K62.1 Rectal polyp; K57.30 Diverticulosis of large intestine without perforation or abscess without bleeding; K64.8 Other hemorrhoids; E11.9 Type 2 diabetes mellitus without complications; R56.9 Unspecified convulsions; Z79.85 Long-term (current) use of injectable non-insulin antidiabetic drugs; Z79.899 Other long term (current) drug therapy; Z88.0 Allergy status to penicillin
CPT/HCPCS: 45385; 45380; 82947; 88305; J2704

== ENCOUNTER → 2024-08-03 08:51 | Outpatient (BNV) | payer MEDICAID, SELFPAY | PROVIDERS: PCP General Practice; Visit Provider Internal Medicine Gastroenterology | DX: Z12.11 Encounter for screening for malignant neoplasm of colon (principal); Z86.010 Personal history of colon polyps; K62.1 Rectal polyp; K63.5 Polyp of colon; K57.90 Diverticulosis of intestine, part unspecified, without perforation or abscess without bleeding | CPT/HCPCS: 45380; 45385 ==

== ENCOUNTER 2024-09-15 23:17 | Emergency (ER) | payer MEDICAID, SELFPAY ==
--- NOTE | ~2024-09-15 | CT_ITS ---
EXAMINATION: CT ABDOMEN AND PELVIS WITH CONTRAST CLINICAL INFORMATION: Right upper quadrant epigastric pain. Rule out biliary disease. COMPARISON: CT abdomen pelvis 12/10/2023. TECHNIQUE: Multidetector volumetric images were obtained from the superior aspect of the liver through the pubic symphysis following administration 85 mL of Omnipaque 350 intravenous contrast. Sagittal and coronal reformatted images were obtained on the technologist's workstation. Oral contrast: No This CT examination was performed using dose optimization techniques as appropriate, variously including the following: *Automated exposure control *Adjustment of mA and/or kV according to patient size (this includes techniques or standardized protocols for targeted exams where dose is matched to indication/reason for exam; i.e. extremities or head) *Use of iterative reconstruction technique DLP: 1212 mGy-cm FINDINGS: LUNG BASES: The visualized lung bases are unremarkable. LIVER, GALLBLADDER, AND BILIARY TREE: Subcentimeter rounded low-density focus within the posterior segment of the right lobe of the liver which is too small to specifically characterize but is overwhelmingly likely to be benign. The liver is otherwise normal in appearance. The gallbladder appears physiologically distended. No definitive gallbladder wall thickening identified. No radiodense cholelithiasis visualized. No pericholecystic fluid collections or inflammatory changes identified. No biliary duct dilatation. PANCREAS: Unremarkable. SPLEEN: Unremarkable. ADRENAL GLANDS: Unremarkable. KIDNEYS AND URETERS: The kidneys are normal in size, shape, and attenuation. No hydronephrosis, hydroureter, or calculi seen. No perinephric stranding. BLADDER: Unremarkable. GASTROINTESTINAL TRACT: A subcentimeter linear focus which may represent material within the fecal stream is noted in the region of the rectosigmoid junction anteriorly. This finding is new compared to 04/23/2024. Dislocation is atypical for an and a clip. This finding likely represents material within the fecal stream. Normal appearance of the appendix. No intestinal dilatation or mural thickening noted. No free intraperitoneal fluid or gas collections. Normal appearance of the stomach and duodenum. ABDOMINAL WALL: No significant hernia is appreciated. LYMPH NODES: Normal. VASCULAR: Minimal scattered calcific atherosclerosis. PELVIC VISCERA: The uterus is diminutive in size and may be atrophic or partially surgically resected. No adnexal lesions. OSSEOUS STRUCTURES: No suspicious skeletal abnormalities identified. Multilevel anterior endplate osteophytosis of the visualized thoracic vertebral bodies. CT/CT abdomen pelvis w IV con IMPRESSION: 1. No acute abnormalities identified. 2. Normal appearance of the gallbladder. No radiodense cholelithiasis. No biliary duct dilatation. Of note, CT may be insensitive in the early detection of acute cholecystitis. 3. Normal appearance of the appendix. No free intraperitoneal fluid or gas collections. Electronically signed by: Rosendo Porter MD 09/16/2024 03:37 AM MEET
--- NOTE | ~2024-09-15 | XR_ITS ---
EXAMINATION: XR CHEST CLINICAL INFORMATION: Chest pain COMPARISON: Chest radiograph 12/10/2023 TECHNIQUE: Frontal view of the chest was obtained. FINDINGS: Normal appearance of the cardiomediastinal structures. No effusions or pneumothoraces. Normal pattern of pulmonary vasculature. No focal pulmonary consolidation. XR/XR chest 1V IMPRESSION: Normal chest. Lungs clear. Electronically signed by: Rosendo Porter MD 09/16/2024 01:04 AM MEET
[2024-09-15 23:27] VITALS: BP 200/104; PULSE 77; O2SAT 98
[2024-09-15 23:35] VITALS: BP 73/44; PULSE 60; RESP 22; TEMP 36.4; O2SAT 95; BMI 53.0
--- NOTE | 2024-09-16 | ECG_ITS ---
Test Reason : DIZINESS Blood Pressure : / mmHG Vent. Rate : 064 BPM Atrial Rate : 064 BPM P-R Int : 196 ms QRS Dur : 086 ms QT Int : 412 ms P-R-T Axes : -14 047 056 degrees QTc Int : 425 ms Normal sinus rhythm Subtle inferior ST elevations with reciprocal change in aVL Abnormal ECG When compared with ECG of 05-JUN-2024 13:45, ST changes noted. Consider serial ECGs Referred By: Generic ED Physician Electronically Signed By:Jeffrey Calvert
[2024-09-16 00:13] VITALS: BP 109/66; PULSE 75; RESP 18; O2SAT 96
[2024-09-16 00:19] LABS: MANUAL DIFF FLAG NO
[2024-09-16 00:23] LABS: Basophils Percent Auto 0.3 % (0-2); Eosinophils Percent Auto 0.2 % (0-4); Hematocrit 39.1 % (37.0-47.0); Hemoglobin 12.2 g/dl (12.0-16.0); Imm Gran Abs Auto 0.03 X10*3/uL (0.00-0.03); Imm Gran Pct Auto 0.3 % (0.0-0.4); Lymphocytes Absolute Auto 1.6 X10*3/uL (1.2-4.9); Lymphocytes Percent Auto 16.1 % (20-40); Mean Corpuscular HGB Conc 31.2 g/dl (31.0-35.0); Mean Corpuscular Hemoglobin 26.7 pg (27.0-33.0); Mean Corpuscular Volume 85.6 fL (80.0-98.0); Mean Platelet Volume 9.1 fL (9.4-12.3); Monocytes Absolute Auto 0.5 X10*3/uL (0.1-1.2); Monocytes Percent Auto 5.4 % (2-11); Neutrophils Absolute Auto 7.8 x10*3/uL (2.0-8.3); Neutrophils Percent Auto 77.7 % (45-73); Platelet Count 372 X10*3/uL (160-400); Red Blood Count 4.57 X10*6/uL (4.20-5.50); Red Cell Distribution Width 14.1 % (11.0-16.0); White Blood Count 10.1 X10*3/uL (4.8-10.8)
--- NOTE | 2024-09-16 00:23 | PC.NURSE ---
this rn assumed care of pt, pt a&ox4, respirations even and unlabored. pt son at bedside reports pt had 2 seizures one after another for 30 seconds each. pt son reports pt has seizure history but has been off keppra for a long time due to not having frequent seizures. pt now a&ox4 and reporting 10/10 squeezing abdominal pain in the mid abdomen, pt abdomen tender to touch. 20G placed in right ac, labs obtained. pt normal sinus on tele 70-75bpm. seizure precautions in place.
[2024-09-16 00:35] LABS: Alanine Aminotransferase 18 U/L (0-31); Alkaline Phosphatase 85 U/L (39-117); Anion Gap 14 (12-20); Aspartate Amino Transferase 17 U/L (5-31); Bilirubin Total 0.3 mg/dL (0.0-1.0); Blood Urea Nitrogen 24 mg/dL (9-16); Calcium 10.1 mg/dL (8.4-10.2); Carbon Dioxide 26 mmol/L (22-29); Chloride 103 mmol/L (96-108); Creatinine Clr Calc Pharmacy 98.8; Estimated Glomerular Filt Rate > 60; Glucose Random 189 mg/dL (60-115); Lipase 27 U/L (8-78); Potassium 4.1 mmol/L (3.3-5.1); Sodium 139 mmol/L (135-145); Total Protein 7.3 g/dL (6.5-8.0)
[2024-09-16 00:44] LABS: Troponin-I High Sensitivity < 2.7 ng/L (<3.5-17.0)
--- NOTE | 2024-09-16 01:21 | ED_ITS ---
HPI - Seizure General Chief Complaint: Abdominal Pain Stated Complaint: ABDOMINAL PAIN Time Seen by Provider: 09/16/24 01:21 Mode of arrival: EMS Limitations: no limitations History of Present Illness ED Provider: Dr. Helio Chairez HPI Narrative: 59-year-old female with a history of tubular adenoma, seizures not on medications, diabetes mellitus, 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 The patient ate rice with seafood at around 19:00 hours at 20:30 hours she developed abdominal pain. She points to her epigastric and right upper quadrant area when asked to localize the pain. She describes it as a squeezing pain which is constant and greater than 10/10. The pain associated with nausea and vomiting. Pain does not radiate to her back. Patient's son who was here at the patient's bedside states that the patient then got very tense in her upper extremities, her eyes were closed and she began to scream. They state that she may have had a seizure but it is unclear she ever lost consciousness or had tonic-clonic movements based on the son's description. Patient states she has had similar abdominal pain in the past. Patient was seen in the emergency department on 01/02/2023 for epigastric pain with a negative workup. Patient had a CT scan of the abdomen pelvis on 12/10/[address] scan but did have transient elevated ST segments with elevated troponins and had a negative coronary angiogram with a presumptive diagnosis being myocarditis. Related Data Home Medications ?Medication ?Instructions ?Recorded ?Confirmed diphenhydramine HCl 25 mg capsule 25 mg PO BEDTIME 09/19/20 02/21/24 (Benadryl) ascorbate calcium (vitamin C) 500 500 mg PO DAILY 02/21/24 02/21/24 mg tablet atorvastatin 10 mg tablet 10 mg PO BEDTIME 02/21/24 02/21/24 dulaglutide 1.5 mg/0.5 mL 1.5 mg subcut QWEEK 02/21/24 02/21/24 [facility] lisinopril 40 mg tablet 40 mg PO DAILY 02/21/24 02/21/24 Previous Rx's ?Medication ?Instructions ?Recorded albuterol sulfate 90 mcg/actuation 2 puff inhalation Q6H PRN 07/24/21 aerosol inhaler shortness of breath or wheezing #6.7 grams acetaminophen 500 mg tablet 1,000 mg (2 x 500 mg) PO QID PRN 06/05/24 pain #30 tabs cyclobenzaprine 5 mg tablet 5 mg PO TID PRN muscle spasm #14 06/05/24 tabs oxycodone 5 mg tablet 5 mg PO Q6H PRN pain #14 tabs 06/05/24 aluminum hydrox-magnesium carb 254 10 ml PO QID PRN dyspepsia #355 mL 09/16/24 mg-237.5 mg/5 mL oral suspension (Gaviscon Extra Strength) omeprazole 20 mg capsule,delayed 20 mg PO DAILY 30 days #30 caps 09/16/24 release Allergies Allergy/AdvReac Type Severity Reaction Status Date / Time penicillin G [Penicillin G] Allergy Unknown RASH Verified 09/15/24 23:36 penicillin V Allergy Unknown rash Verified 09/15/24 23:36 Review of Systems 2 Review of Systems: Yes all other systems are reviewed and are negative [facility] Past Medical History Medical History Tubular adenoma Seizure Diabetes mellitus Surgical History Hx of knee surgery History of hysterectomy History of colonoscopy Family History Family History Father No problems noted. Mother Family hx-asthma Hx of diabetes insipidus Hx of emphysema Social History Social History Household Members: None Alcohol intake: never Patient Tobacco Use Status: Never used Tobacco Smoked in Last 30 Days: No Use of substances other than those prescribed or required for medical reasons: No Advance Directives: No Advance Directives Information Provided: No Do you have a plan to hurt others: No Plan Patient : No Current occupational status: employed Current occupation: [employer] Physical Exam 2 Vital Signs: Vital Signs: Last Vital Signs Temp 98.5 F 09/16/24 04:00 Pulse 77 09/16/24 04:00 Resp 20 09/16/24 04:00 BP 131/75 09/16/24 04:00 Pulse Ox 96 09/16/24 04:00 O2 Del Method Room Air 09/16/24 04:00 BMI result Body Mass Index 53.0 Vital signs were normal Exam: General: Awake, alert , patient he was in distress secondary to her abdominal pain, she was moaning and holding her abdomen, weight 131 kg, elevated BMI of 53 kg per m2 Head: Normocephalic, atraumatic EENT: PERRL, Lids normal, sclera normal, conjunctiva normal, nose normal , ears normal, throat without erythema or exudates Neck: Supple, no adenopathy Lung: breath sounds symmetric, no wheezing, rales or rhonchi Chest: symmetric movement, nontender Heart: regular rate and rhythm, normal S1, S2 no murmurs or rubs Abdomen: Obese, diffusely tender with increased tenderness in the epigastric and right upper quadrant area, voluntary guarding Back: no vertebral tenderness, no CVAT Extremities: no deformities, moves all extremities symmetrically Neuro: Awake, alert, oriented, normal speech, cranial nerves intact, moves all extremities symmetrically Psych: Pleasant, cooperative Medications Administered Discontinued Medications Generic Name Dose Route Start Last Admin Trade Name Freq PRN Reason Stop Dose Admin Al Hydroxide/Mg Hydroxide 30 ml 09/16/24 04:15 09/16/24 04:33 Magnesium Hydrox/Alum Hydrox 30 Ml Oral.Susp PO 09/16/24 04:16 30 ml ONCE STA Administration Belladonna Alkaloids/Phenobarbital 10 ml 09/16/24 04:15 09/16/24 04:33 Phenobarb/Hyoscy/Atropine/Scop 10 Ml Elixir PO 09/16/24 04:16 10 ml ONCE ONE Administration Sodium Chloride 1,000 mls @ 999 mls/hr 09/16/24 02:15 09/16/24 04:23 Ns IV 09/16/24 03:15 Infused .Q1H1M STA Infusion Iohexol 100 ml 09/16/24 02:53 09/16/24 02:54 Iohexol 350 Mg/Ml 100 Ml Infus..Btl IV 09/16/24 02:54 100 ml ONCE ONE Administration Lidocaine HCl 10 ml 09/16/24 04:15 09/16/24 04:33 Lidocaine Hcl Viscous 2 % 15 Ml Solution PO 09/16/24 04:16 10 ml ONCE ONE Administration Lorazepam 1 mg 09/16/24 01:21 09/16/24 01:27 Lorazepam 2 Mg/Ml Vial IVPUSH 09/16/24 01:22 1 mg STAT STA Administration Morphine Sulfate 4 mg 09/16/24 02:15 09/16/24 02:58 Morphine Sulfate 4 Mg/Ml Cartridge IVPUSH 09/16/24 02:16 4 mg ONCE STA Administration Protocol Ondansetron HCl 4 mg 09/16/24 02:15 09/16/24 02:58 Ondansetron Hcl 4 Mg/2 Ml Vial IVPUSH 09/16/24 02:16 4 mg ONCE ONE Administration Medical Decision Making Medical Decision Making [facility] Narrative: 59-year-old female with a history of tubular adenoma, seizures not on medications, diabetes mellitus, 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 Patient had an episode of vomiting in the emergency department and has persistent nausea. Based on the son's description I do not think that the patient had a seizure but may have had hyperventilation syndrome causing carpal/pedal spasm. The patient ate rice with seafood at around 19:00 hours at 20:30 hours she developed abdominal pain. Patient was in distress secondary to her abdominal pain, she did have diffuse abdominal tenderness with increased tenderness in the right upper quadrant and epigastric area. Differential diagnosis: ?Includes but is not limited to pancreatitis, gastritis, cholecystitis, biliary colic, anemia, electrolyte abnormalities Course: 03:01 My interpretation patient's laboratory evaluation is as follows: CBC was normal. BUN elevated 24 with a normal creatinine of 0.82. Glucose elevated 189. LFTs were normal. Troponin was below detectable limits. Lipase was normal. Urinalysis was negative. Lipase was normal. The patient was treated with Ativan 1 mg IV, morphine 4 mg IV and Zofran 4 mg for NV. She was also given normal saline IV x1 L. 04:11 CT scan of the abdomen pelvis with IV contrast did not reveal any clear etiology for the patient's pain. Patient states that her pain is improved but she was still having epigastric pain. Patient was ordered to get viscous lidocaine 10 cc, 10 cc and Maalox 30 cc orally. 05:55 Patient was feeling better after the above treatment. Patient will be discharged home with a prescription for Prilosec and extra-strength Gaviscon. She was given printed and verbal instructions on gastritis at discharged. Admission/Observation Consideration of admission/observation: Escalation of care including admission/observation considered (Yes) Lab Data MDM Lab Attestation statement: I reviewed the patient's lab results. 09/16/24 00:13 09/16/24 00:13 Labs: Lab Results 09/16/24 09/16/24 Range/Units 00:13 02:09 WBC 10.1 (4.8-10.8) X10*3/uL RBC 4.57 (4.20-5.50) X10*6/uL Hgb 12.2 (12.0-16.0) g/dl Hct 39.1 (37.0-47.0) % MCV 85.6 (80.0-98.0) fL MCH 26.7 L (27.0-33.0) pg MCHC 31.2 (31.0-35.0) g/dl RDW 14.1 (11.0-16.0) % Plt Count 372 (160-400) X10*3/uL MPV 9.1 L (9.4-12.3) fL Immature Gran % (Auto) 0.3 (0.0-0.4) % Neut % (Auto) 77.7 H (45-73) % Lymph % (Auto) 16.1 L (20-40) % [place] % (Auto) 5.4 (2-11) % Eos % (Auto) 0.2 (0-4) % Baso % (Auto) 0.3 (0-2) % Lymph # (Auto) 1.6 (1.2-4.9) X10*3/uL [place] # (Auto) 0.5 (0.1-1.2) X10*3/uL Eos # (Auto) 0.0 (0.0-0.4) X10*3/uL Baso # (Auto) 0.0 (0.0-0.2) X10*3/uL Abs Immat Gran (auto) 0.03 (0.00-0.03) X10*3/uL Absolute Neuts (auto) 7.8 (2.0-8.3) x10*3/uL Absolute Nucleated RBC 0.000 (0.0-0.012) X10*3/uL Nucleated RBC % (auto) 0.0 (0.0-0.2) /100WBC Hold Blue Top SEE NOTE Sodium 139 (135-145) mmol/L Potassium 4.1 (3.3-5.1) mmol/L Chloride 103 (96-108) mmol/L Carbon Dioxide 26 (22-29) mmol/L Anion Gap 14 (12-20) BUN 24 H (9-16) mg/dL Creatinine 0.82 (0.5-1.4) mg/dL Estim Creat Clear Calc 98.8 Estimated GFR > 60 Random Glucose 189 H (60-115) mg/dL Calcium 10.1 D (8.4-10.2) mg/dL Total Bilirubin 0.3 (0.0-1.0) mg/dL AST 17 (5-31) U/L ALT 18 (0-31) U/L Alkaline Phosphatase 85 (39-117) U/L Troponin I High Sens < 2.7 (<3.5-17.0) ng/L Total Protein 7.3 (6.5-8.0) g/dL Albumin 4.0 (3.5-5.0) g/dL Lipase 27 (8-78) U/L Urine Color Yellow Urine Appearance Clear Urine pH 6.5 (5.0-9.0) Ur Specific [place] 1.025 (1.005-1.025) Urine Protein Negative (Neg-Trace) mg/dL Urine Glucose (UA) Negative (Negative) mg/dL Urine Ketones Negative (Negative) mg/dL Urine Blood Negative (Negative) Urine Nitrite Negative (Negative) Ur Leukocyte Esterase Negative (Negative) Urine RBC 0-2 (0-2) /HPF Urine WBC 0-5 (0-5) /HPF Ur Squamous Epith Cells 0-2 (0-2) /HPF Urine Bacteria None Seen (None Seen) Hyaline Casts 0-2 (0-2) /LPF Independent Interpretation I performed an independent interpretation of an: EKG Interpretation: My interpretation the patient's 12 EKG done at 00:10 hours is as follows: Normal sinus rhythm rate of 64, normal MA interval, QRS duration QTC interval, less than [address] segment elevation 2 3 and AVF, no significant T-wave abnormalities, no PVCs, no PACs Radiology Impression Discussion of test interpretation with radiology: I have reviewed the radiologist's reading. Radiologist Impression: CT abdomen pelvis w IV con IMPRESSION: 1. No acute abnormalities identified. 2. Normal appearance of the gallbladder. No radiodense cholelithiasis. No biliary duct dilatation. Of note, CT may be insensitive in the early detection of acute cholecystitis. 3. Normal appearance of the appendix. No free intraperitoneal fluid or gas collections. Electronically signed by: Rosendo [place] MD 09/16/2024 03:37 AM EST Independent Historian Clinical information obtained from an independent historian. History obtained from or confirmed by: Other (Son) Prescription Management I considered prescription management with: Other (Prilosec, extra-strength Gaviscon) Chronic Conditions Patient?s care impacted by: Hypertension Discharge Plan Discharge Clinical Impression: Abdominal pain Qualifiers: Abdominal location: epigastric Qualified Code(s): R10.13 - Epigastric pain Gastritis Qualifiers: Chronicity: acute Gastritis bleeding: without bleeding Patient Disposition: Home, Self-Care Instructions: Gastritis (ED) Additional Instructions: Your blood work was unremarkable. The CT scan of your abdomen pelvis did not reveal any clear cause for your pain which is reassuring. Your pain is consistent with inflammation of your stomach (gastritis) Take Prilosec (omeprazole) 20 mg pills, 1 pill once a day for 1 month. ?This medication shuts off your acid production and lets the inflammation in your stomach and esophagus heal. Take extra-strength Gaviscon 10 mL (2 tsp) 4 times a day as needed for abdominal pain. Continue taking medications as prescribed by your providers Follow-up with your doctor in 2 days. Please return to the emergency department if your symptoms get worse or if you develop any symptoms that are concerning to you. Prescriptions: New omeprazole 20 mg capsule,delayed release(DR/EC) 20 mg PO DAILY 30 Days Qty: 30 0RF Gaviscon Extra Strength 254-237.5 mg/5 mL suspension 10 ml PO QID PRN (Reason: dyspepsia) Qty: 355 0RF No Action albuterol sulfate 90 mcg/actuation HFA aerosol inhaler 2 puff inhalation Q6H PRN (Reason: shortness of breath or wheezing) Qty: 6.7 0RF oxycodone 5 mg tablet 5 mg PO Q6H PRN (Reason: pain) Qty: 14 0RF Rx Instructions: Partial Fill upon patient request. cyclobenzaprine 5 mg tablet 5 mg PO TID PRN (Reason: muscle spasm) Qty: 14 0RF acetaminophen 500 mg tablet 1,000 mg PO QID PRN (Reason: pain) Qty: 30 0RF diphenhydramine HCl [Benadryl] 25 mg capsule 25 mg PO BEDTIME lisinopril 40 mg tablet 40 mg PO DAILY ascorbate calcium (vitamin C) 500 mg tablet 500 mg PO DAILY atorvastatin 10 mg tablet 10 mg PO BEDTIME Trulicity 1.5 mg/0.5 mL pen injector 1.5 mg subcut QWEEK Print Language: Cam[place]onian
[2024-09-16] MEDS: LORazepam 2 MG/ML VIAL 1 MG IVPUSH (01:27)
--- NOTE | 2024-09-16 01:30 | PC.NURSE ---
aware of pt discomfort at this time, pt medicated per jan.
[2024-09-16 02:00] VITALS: BP 123/69; PULSE 79; RESP 20; TEMP 36.8; O2SAT 96
--- NOTE | 2024-09-16 02:06 | PC.NURSE ---
this rn ambulated pt to bathroom, pt appeared to be in pain, pt unable to ambulate with steady gait, pt 2A to bathroom. urine sample obtained. pt assisted back to bed, pt noted to have 10/10 abdominal pain and noted to be dry heaving. provider aware.
[2024-09-16 02:16] LABS: Appearance Urine Clear; Color Urine Yellow; Glucose Urine UA Negative (Negative); Leukocyte Esterase Urine Negative (Negative); Nitrite Urine Negative (Negative); PH 6.5 (5.0-9.0); Specific Gravity - Urine 1.025 (1.005-1.025); Urine Blood Negative (Negative); Urine Ketones Negative (Negative); Urine Protein Negative (Neg-Trace)
[2024-09-16 02:46] LABS: Bacteria Urine None Seen (None Seen); Hyaline Casts Urine 0-2 /LPF (0-2); RBC Urine 0-2 /HPF (0-2); Squamous Epithelial Cell Urine 0-2 /HPF (0-2); WBC Urine 0-5 /HPF (0-5)
[2024-09-16] MEDS: iohexoL 350 MG/ML 100 ML INFUS..BTL IV (02:54)
[2024-09-16] MEDS: 0.9 % Sodium Chloride 1,000 ML 999 ML IV (02:57)
[2024-09-16 02:58] VITALS: RESP 17
[2024-09-16] MEDS: ondansetron HCL 4 MG/2 ML VIAL IVPUSH (02:58)
[2024-09-16] MEDS: Morphine Sulfate 4 MG/ML CARTRIDGE IVPUSH ×2 (02:58→05:57)
--- NOTE | 2024-09-16 03:02 | PC.NURSE ---
pt medicated per mar for 10 abdominal pain and nausea, IV fluid bolus administered.
[2024-09-16 04:00] VITALS: BP 131/75; PULSE 77; RESP 20; TEMP 36.9; O2SAT 96
[2024-09-16] MEDS: PHENobarb/Hyoscy/Atropine/Scop 10 ML ELIXIR PO (04:33)
[2024-09-16] MEDS: Magnesium Hydrox/Alum Hydrox 30 ML ORAL.SUSP PO (04:33)
[2024-09-16] MEDS: Lidocaine HCl Viscous 2 % 15 ML SOLUTION 10 ML PO (04:33)
[2024-09-16 05:57] VITALS: RESP 18
--- NOTE | 2024-09-16 05:58 | PC.NURSE ---
pt reporting 7/10 abdominal pain at this time and unable to complete sentence without groan
[2024-09-16 06:33] VITALS: BP 114/58; PULSE 78; RESP 20; TEMP 37.2; O2SAT 98
== END 2024-09-16 06:34 | disposition home or self-care (01) ==
PROVIDERS: Emergency Provider Emergency Medicine Emergency Medical Services; PCP General Practice
DX: K29.70 Gastritis, unspecified, without bleeding (principal); R10.2 Pelvic and perineal pain; R94.31 Abnormal electrocardiogram [ECG] [EKG]; R10.13 Epigastric pain; R42 Dizziness and giddiness; E11.9 Type 2 diabetes mellitus without complications; R41.82 Altered mental status, unspecified; Z79.899 Other long term (current) drug therapy
CPT/HCPCS: 36415; 71045; 74177; 80053; 81001; 83690; 84484; 85025; 93005; 99285; J2060; J2270; J2405; Q9967

== ENCOUNTER → 2024-09-16 00:10 | Outpatient (BNV) | payer MEDICAID, SELFPAY | PROVIDERS: Emergency Provider Emergency Medicine Emergency Medical Services; PCP General Practice; Visit Provider Internal Medicine Cardiovascular Disease | DX: R94.31 Abnormal electrocardiogram [ECG] [EKG] (principal) | CPT/HCPCS: 93010 ==

== ENCOUNTER 2025-06-08 15:56 | Outpatient (REF) | payer MEDICAID, SELFPAY ==
--- NOTE | ~2025-06-08 | XR_ITS ---
EXAMINATION: XR HAND, LEFT CLINICAL INFORMATION: jam injury with pain left middle and ring MCP, PCP and DIP pain COMPARISON: None available. TECHNIQUE: PA, lateral, and oblique views of the left hand. FINDINGS: No acute fracture, deformity, or degenerative changes are evident. Ulnar variance measures +2.5 mm. No fracture is evident XR/XR hand LT min 3V IMPRESSION: No acute abnormality. Positive ulnar variance, correlate for signs symptoms of ulnar lunate impaction syndrome. Electronically signed by: Kelton Suazo MD 06/08/2025 04:48 PM EDT
--- OUTSIDE RECORDS SUMMARY | 2025-06-08 16:09 | XMS_ITS | Encounter Summary ---
Author Organization [employer] Address [address] [place] [address] [address] [place] [address] Care Team Providers Care .Net Developer Name Role Phone Tuyet Branch MD Primary Care Provider [phone] Encounter Details Date Type Department Care Team (Late Contact Info) Description 07/19/2023 Orders Only [facility] [address] [place], [place] [phone] Tuyet Branch MD [address] [place], [place] [phone] Social History Tobacco Use Types Packs/Day Years Used Date Smoking Tobacco: Never Smokeless Tobacco: Never Alcohol Use Standard Drinks/Week Comments Never 0 (1 standard drink = 0.6 oz pur e alcohol) PHQ-2 Answer Date Recorded Patient Health Questionnaire-2 Score 0 12/17/2022 Depression Answer Date Recorded Patient Health Questionnaire-2 Score 0 12/17/2022 Comments Unknown Sex and Gender Information Value Date Recorded Sex Assigned at Female 09/03/2022 10:14 AM EDT Legal Sex Female 10:14 AM EDT Gender Identity Female 09/03/2022 10:14 AM EDT Sexual Orientation Straight 09/03/2022 10 :14 AM EDT documented as of this encounter Plan of Treatment Upcoming Encounters Date Type Department Care Team (Late Contact Info) Description 06/11/2025 9:30 AM EDT Office Visit [facility] [address] [place] [address] Thang, Lety, OD [address], [place] [phone] 06/28/2025 4:00 PM EDT Office Visit [facility] [address] [place] [address] Tuyet Branch MD [address] [place] [address] documented as of this encounter Visit Diagnoses Not on filedocumented in this encounter Care Teams .Net Developer Relationship Specialty Start Date End Date Tuyet Branch MD [address] [place] [id number] PCP - General Family Medicine 10/13/20 documented as of this encounter
== END 2025-06-08 15:57 | disposition home or self-care (01) ==
LOC: HO.HHCX 15:56
PROVIDERS: Visit Provider Family Medicine
DX: S67.22XA Crushing injury of left hand, initial encounter (principal); W23.0XXA Caught, crushed, jammed, or pinched between moving objects, initial encounter
CPT/HCPCS: 73130

== ENCOUNTER → 2025-06-08 15:57 | Outpatient (BNV) | payer MEDICAID, SELFPAY | PROVIDERS: Visit Provider Radiology Diagnostic Radiology | DX: M79.645 Pain in left finger(s) (principal) | CPT/HCPCS: 73130 ==